=== PATIENT | female | born 1980 | race Caucasian/White ===

== ENCOUNTER → 2016-10-30 23:18 | Outpatient (CLI) | payer MEDICAID ==
[2015-10-19 08:01] VITALS: BMI 28.9
[~2016-10-30 23:18] MED LIST: CELEXA40 MG PO; DILAUDID2 MG PO; ELAVIL25 MG PO; GLUCOPHAGE500 MG PO; HYDROCODONE-APA1 TAB PO; INVOKANA300 MG PO; KURVELO OR; LANTUS INSULIN10 ML SQ; LISINOPRIL10 MG PO; NEURONTIN 300300 MG PO; PROTONIX40 MG PO; REMERON30 MG/UDTA PO; ROBAXIN-750750 MG PO; VICTOZA0.6 MG/0.1 SQ
[2016-10-31 00:48] LABS: APPEARANCE HAZY (CLEAR); BILIRUBIN NEGATIVE (NEGATIVE); COLOR YELLOW (YELLOW); GLUCOSE 1000 mg/dL (NEGATIVE); KETONE NEGATIVE (NEGATIVE); LEUKOCYTE ESTERASE NEGATIVE (NEGATIVE); NITRITE NEGATIVE (NEGATIVE); PH 5.5 (5.0-6.0); PROTEIN NEGATIVE (NEGATIVE); SPECIFIC GRAVITY 1.015 (1.005-1.020); UROBILINOGEN NORMAL (NORMAL)
== END ==
LOC: D.LDO 23:18
PROVIDERS: Obstetrics & Gynecology
DX: O26.893 Other specified pregnancy related conditions, third trimester (principal); Z3A.36 36 weeks gestation of pregnancy; R10.30 Lower abdominal pain, unspecified

== ENCOUNTER 2017-02-08 17:30 | Emergency (ER) | payer MEDICAID ==
[2015-10-19 08:01] VITALS: BMI 28.9
[2017-02-08 18:27] LABS: BASOPHILS 0.4 % (0-2); EOSINOPHILS 0.9 % (0-7); HEMATOCRIT 43.7 % (36.0-48.0); HEMOGLOBIN 13.6 g/dL (12-16); IMMATURE GRANULOCYTES 0.1 % (0-5); LYMPHOCYTES 33.9 % (15-50); MCH 24.2 pg (26.0-34.0); MCHC 31.1 g/dL (31.0-37.0); MCV 77.6 fL (80.0-100.0); MONOCYTES 6.2 % (2-11); NEUTROPHILS 58.5 % (40-80); PLATELET COUNT 121 10x3/uL (130-400); RBC 5.63 10x6/uL (4.00-5.40); RDW 16.5 % (11.5-14.5); WBC 7.1 10x3/uL (4.8-10.8)
[2017-02-08 18:54] LABS: ALBUMIN 3.1 g/dL (3.4-5.0); BILIRUBIN - TOTAL 0.45 mg/dL (0.2-1.3); CALCIUM 8.9 mg/dL (8.5-10.1); CARBON DIOXIDE 26.2 mmol/L (21.0-32.0); POTASSIUM - SERUM 4.2 mmol/L (3.5-5.1); PROTEIN - SERUM 7.2 g/dL (6.4-8.2)
[2017-02-08 21:21] LABS: APPEARANCE CLEAR (CLEAR); BACTERIA FEW /hpf (NONE SEEN); BILIRUBIN NEGATIVE (NEGATIVE); COLOR YELLOW (YELLOW); EPITHELIAL CELLS 0-5 /hpf (0-5); GLUCOSE 1000 mg/dL (NEGATIVE); KETONE NEGATIVE (NEGATIVE); LEUKOCYTE ESTERASE TRACE (NEGATIVE); NITRITE NEGATIVE (NEGATIVE); PROTEIN NEGATIVE (NEGATIVE); RED CELLS - URINE OCC /hpf (0-5); UROBILINOGEN NORMAL (NORMAL); WHITE CELLS - URINE 0-5 /hpf (0-5)
== END 2017-02-09 00:20 | disposition left against medical advice (07) ==
LOC: D.ER 17:30
PROVIDERS: Emergency Medicine
DX: R11.10 Vomiting, unspecified (principal); E11.65 Type 2 diabetes mellitus with hyperglycemia; K76.9 Liver disease, unspecified; I10 Essential (primary) hypertension; E87.6 Hypokalemia

== ENCOUNTER 2017-02-23 23:56 | Emergency (ER) | payer MEDICAID ==
[2015-10-19 08:01] VITALS: BMI 28.9
== END 2017-02-23 23:57 | disposition home or self-care (01) ==
LOC: D.ER 23:56
DX: T83.89XA Other specified complication of genitourinary prosthetic devices, implants and grafts, initial encounter (principal); I10 Essential (primary) hypertension; E87.6 Hypokalemia; F17.200 Nicotine dependence, unspecified, uncomplicated

== ENCOUNTER 2017-03-26 15:56 | Emergency (ER) | payer MEDICAID ==
[2015-10-19 08:01] VITALS: BMI 28.9
[2017-03-26 16:47] LABS: APPEARANCE CLEAR (CLEAR); BASOPHILS 0.5 % (0-2); BILIRUBIN NEGATIVE (NEGATIVE); COLOR STRAW (YELLOW); EOSINOPHILS 1.3 % (0-7); GLUCOSE 1000 mg/dL (NEGATIVE); HEMATOCRIT 42.6 % (36.0-48.0); HEMOGLOBIN 14.2 g/dL (12-16); IMMATURE GRANULOCYTES 0.1 % (0-5); KETONE NEGATIVE (NEGATIVE); LEUKOCYTE ESTERASE NEGATIVE (NEGATIVE); LYMPHOCYTES 26.7 % (15-50); MCH 25.7 pg (26.0-34.0); MCHC 33.3 g/dL (31.0-37.0); MCV 77.2 fL (80.0-100.0); MONOCYTES 7.3 % (2-11); NEUTROPHILS 64.1 % (40-80); NITRITE NEGATIVE (NEGATIVE); PLATELET COUNT 102 10x3/uL (130-400); PROTEIN NEGATIVE (NEGATIVE); RBC 5.52 10x6/uL (4.00-5.40); RDW 14.8 % (11.5-14.5); UROBILINOGEN NORMAL (NORMAL); WBC 7.8 10x3/uL (4.8-10.8)
[2017-03-26 17:03] LABS: ALBUMIN 3.1 g/dL (3.4-5.0); ALKALINE PHOSPHATASE 145 U/L (46-116); ALT (SGPT) 49 U/L (10-68); AMYLASE - SERUM 29 U/L (25-115); BILIRUBIN - TOTAL 0.46 mg/dL (0.2-1.3); CALCIUM 9.2 mg/dL (8.5-10.1); CARBON DIOXIDE 29.7 mmol/L (21.0-32.0); CHLORIDE - SERUM 100 mmol/L (98-107); CREATININE - SERUM 0.9 mg/dL (0.6-1.3); LIPASE 136 U/L (73-393); POTASSIUM - SERUM 4.1 mmol/L (3.5-5.1); PROTEIN - SERUM 6.6 g/dL (6.4-8.2); SODIUM 135 mmol/L (136-145); UREA NITROGEN 13 mg/dL (7-18); eGFR NON AFRICAN AMERICAN 76 mL/min (90-120)
[2017-03-26 17:06] LABS: CALC OSMOLALITY 292 mosm/kg (275-300); GLUCOSE 510 mg/dL (74-106)
[2017-03-26 17:13] LABS: HCG SERUM NEGATIVE (NEGATIVE)
== END 2017-03-26 20:20 | disposition home or self-care (01) ==
LOC: D.ER 15:56
PROVIDERS: Emergency Medicine; Physician Assistant Medical
DX: R10.9 Unspecified abdominal pain (principal); R11.0 Nausea; I10 Essential (primary) hypertension; E87.6 Hypokalemia

== ENCOUNTER 2017-04-27 18:44 | Inpatient (IN) | payer MEDICAID ==
[~2017-04-27] VITALS: Ht 172.7 cm; Wt 102.6 kg
[2017-04-27 19:00] VITALS: BP 146/80
[2017-04-27 19:27] LABS: APPEARANCE CLEAR (CLEAR); BILIRUBIN NEGATIVE (NEGATIVE); COLOR STRAW (YELLOW); GLUCOSE 1000 mg/dL (NEGATIVE); KETONE NEGATIVE (NEGATIVE); LEUKOCYTE ESTERASE NEGATIVE (NEGATIVE); NITRITE NEGATIVE (NEGATIVE); PROTEIN NEGATIVE (NEGATIVE); UROBILINOGEN NORMAL (NORMAL)
[2017-04-27 19:35] LABS: BACTERIA FEW /hpf (NONE SEEN); EPITHELIAL CELLS 0-5 /hpf (0-5); RED CELLS - URINE 0-5 /hpf (0-5); UDS - AMPHET NEGATIVE QUAL (NEGATIVE); UDS - BARB NEGATIVE QUAL (NEGATIVE); UDS - BENZO NEGATIVE QUAL (NEGATIVE); UDS - COCAINE NEGATIVE QUAL (NEGATIVE); UDS - METH NEGATIVE QUAL (NEGATIVE); UDS - OPIATE NEGATIVE QUAL (NEGATIVE); UDS - PCP NEGATIVE QUAL (NEGATIVE); UDS - THC NEGATIVE QUAL (NEGATIVE); WHITE CELLS - URINE 0-5 /hpf (0-5); YEAST >1+ /hpf (NONE SEEN)
[2017-04-27 19:37] LABS: BASOPHILS 0.3 % (0-2); EOSINOPHILS 1.1 % (0-7); HEMATOCRIT 41.3 % (36.0-48.0); HEMOGLOBIN 13.8 g/dL (12-16); IMMATURE GRANULOCYTES 0.2 % (0-5); LYMPHOCYTES 32.8 % (15-50); MCH 25.9 pg (26.0-34.0); MCHC 33.4 g/dL (31.0-37.0); MCV 77.6 fL (80.0-100.0); MEAN PLATELET VOLUME 12.5 fL (7.4-10.4); MONOCYTES 5.5 % (2-11); NEUTROPHILS 60.1 % (40-80); PLATELET COUNT 90 10x3/uL (130-400); RBC 5.32 10x6/uL (4.00-5.40); RDW 13.6 % (11.5-14.5); WBC 6.6 10x3/uL (4.8-10.8)
[2017-04-27 19:45] LABS: APTT 24.6 SECONDS (22.8-39.4); INR 1.02 (0.85-1.17); PROTIME 13.3 SECONDS (11.6-15.0)
[2017-04-27 19:52] LABS: ALKALINE PHOSPHATASE 114 U/L (46-116); ALT (SGPT) 48 U/L (10-68); CALCIUM 8.2 mg/dL (8.5-10.1); CARBON DIOXIDE 24.5 mmol/L (21.0-32.0); CHLORIDE - SERUM 97 mmol/L (98-107); CREATININE - SERUM 0.9 mg/dL (0.6-1.3); HCG SERUM NEGATIVE (NEGATIVE); MAGNESIUM - SERUM 1.5 mg/dL (1.8-2.4); PHOSPHOROUS 2.8 mg/dL (2.5-4.9); PROTEIN - SERUM 6.9 g/dL (6.4-8.2); SODIUM 131 mmol/L (136-145); UREA NITROGEN 12 mg/dL (7-18); eGFR NON AFRICAN AMERICAN 76 mL/min (90-120)
[2017-04-27 19:55] LABS: CALC OSMOLALITY 293 mosm/kg (275-300); GLUCOSE 656 mg/dL (74-106)
[2017-04-27 20:09] LABS: KETONE - SERUM NEGATIVE (NEGATIVE)
[2017-04-27 20:38] LABS: HEMOGLOBIN A1C 11.4 % (4.8-6.0)
--- NOTE | 2017-04-27 21:15 | NUR ---
PT ARRIVED VIA W/C FROM ER. NO DISTRESS NOTED. WILL CONTINUE TO MONITOR.
[2017-04-27 21:45] VITALS: BP 146/80; Ht 172.7 cm; Wt 102.6 kg
[2017-04-27] MEDS ORDERED: METOPROLOL TART50 MG PO (22:02)
[2017-04-27] MEDS ORDERED: HCTZ25 MG PO (22:03)
[2017-04-27] MEDS ORDERED: HUMALOG 30100 UNITS/ SC ×2 (22:06→22:07)
[2017-04-27] MEDS ORDERED: HUMULIN R100 U/ML SC (22:07)
[2017-04-27] MEDS ORDERED: ULTRAM50 MG PO (22:09)
--- NOTE | 2017-04-27 22:28 | NUR ---
ADMISSION ASSESSMENT, HISTORY AND HOME MED LIST COMPLETED. PT DENIES ANY DISCOMFORT. VSS. WILL CONTINUE TO MONITOR. SR UP X2, CALL LIGHT WITHIN REACH.
--- NOTE | 2017-04-27 23:10 | NUR ---
PT HAS C/O PAIN AND NAUSEA. Arnav GARCIA RN HS NOTIFIED.
[2017-04-28] VITALS: BP 145/97
--- NOTE | 2017-04-28 00:23 | NUR ---
PT ASKING FOR PAINA ND NAUSEA MEDS. RECONTACTED Arnav GARCIA RN HS TO GET ORDERS FROM ERMD. PT UPDATED. WILL CONTINUE TO MONITOR.
--- NOTE | 2017-04-28 01:17 | NUR ---
ZOFRAN 4MG SIVP GIVEN FOR C/O NAUSEA. ULTRAM 50MG PO GIVEN FOR C/O R FLANK PAIN. SPOUSE AT BEDSIDE. SR UP X2, CALL LIGHT WITHIN REACH.
--- NOTE | 2017-04-28 01:55 | NUR ---
PT STATES PAIN LEVEL STILL 7/10. DENIES AN NAUSEA. EXPLAINED PAIN MED REGIMEN. WILL CONTINUE TO MONITOR.
--- NOTE | 2017-04-28 02:46 | NUR ---
PT CONTINUES TO HAVE C/O FERRER AND L SIDED PAIN, INFORMED PT THAT ER MD WILL NOT GIVE HER ANYMORE PAIN MEDS DUE TO HER FALLS X2 AT HOME. COOL WASHCLOTH APPLIED TO HEAD. INFORMED PT SHE WILL GET ANOTHER ULTRAM WHEN IT IS DUE. WILL CONTINUE TO MONITOR.
[2017-04-28 04:00] VITALS: BP 143/77
--- NOTE | 2017-04-28 04:38 | NUR ---
PT CONTINUES TO HAVE C/O FERRER AND HURTING ALL OVER. INFORMED WILL BRING ULTRAM AT 0500. WILL CONTINUE TO MONITOR.
--- NOTE | 2017-04-28 04:56 | NUR ---
ULTRAM 50MG PO GIVEN FOR C/O FERRER AND GENERALIZED DISCOMFORT. WILL CONTINUE TO MONITOR.
--- NOTE | 2017-04-28 06:34 | NUR ---
PT CONTINUES TO BERE SHE HAS PAIN 04/01. AM FSBS 250. 8 UNITS HUMALOG GIVEN SUB-Q TO UPPER L ARM. NEEDS MET; WILL CONTINUE TO MONITOR.
[2017-04-28 06:49] LABS: BASOPHILS 0.4 % (0-2); EOSINOPHILS 1.8 % (0-7); HEMATOCRIT 38.9 % (36.0-48.0); HEMOGLOBIN 12.8 g/dL (12-16); IMMATURE GRANULOCYTES 0.2 % (0-5); LYMPHOCYTES 43.6 % (15-50); MCHC 32.9 g/dL (31.0-37.0); MCV 76.1 fL (80.0-100.0); MONOCYTES 7.1 % (2-11); NEUTROPHILS 46.9 % (40-80); PLATELET COUNT 102 10x3/uL (130-400); RBC 5.11 10x6/uL (4.00-5.40); RDW 13.7 % (11.5-14.5); WBC 5.5 10x3/uL (4.8-10.8)
[2017-04-28 06:52] LABS: CALC OSMOLALITY 277 mosm/kg (275-300); CALCIUM 7.6 mg/dL (8.5-10.1); CARBON DIOXIDE 27.6 mmol/L (21.0-32.0); CHLORIDE - SERUM 103 mmol/L (98-107); CREATININE - SERUM 0.6 mg/dL (0.6-1.3); GLUCOSE 282 mg/dL (74-106); POTASSIUM - SERUM 3.6 mmol/L (3.5-5.1); SODIUM 135 mmol/L (136-145); UREA NITROGEN 8 mg/dL (7-18); eGFR NON AFRICAN AMERICAN > 90 mL/min (90-120)
--- NOTE | 2017-04-28 07:15 | NUR ---
INITIAL ROUNDS MADE. PT SITTING UP IN BED WATCHING TV. C/O HEADACHE AND ABD PAIN. SHE IS REQUESTING PAIN SHOT. DR MICHEL ON UNIT ROUNDING.
--- NOTE | 2017-04-28 08:00 | NUR ---
PT TOLERATED CLEAR LIQUIDS, ORDERED A REG ADA TRAY.
[2017-04-28 08:22] VITALS: BP 143/84
--- NOTE | 2017-04-28 10:30 | NUR ---
PT VOMITING FOOD PARTICLES FROM BREAKFAST.
--- NOTE | 2017-04-28 12:00 | NUR ---
FSBS 314, 12 UNITS INSULIN GIVEN PER SS.
[2017-04-28 12:10] VITALS: BP 131/72
--- NOTE | 2017-04-28 12:30 | NUR ---
UP TO SHOWER.
--- NOTE | 2017-04-28 13:00 | NUR ---
PT TOLERATED LUNCH WITHOUT N/V.
--- NOTE | 2017-04-28 14:20 | NUR ---
PT REPORTED "SPITTING UP BLOOD". DIME SIZED RED SPOT NOTED ON TISSUE.
--- NOTE | 2017-04-28 15:20 | NUR ---
PT NOW C/O "SHARP STABBING PAIN IN ABDOMEN". HAS ALREADY BEEN GIVEN ULTRAM REQUESTED.
[2017-04-28 16:15] VITALS: BP 149/76
--- NOTE | 2017-04-28 17:15 | NUR ---
C/O N/V AGAIN, ADVISED IF ALREADY NAUSEATED SHOULD NOT EAT. PT HAS BEEN COMPLAINING OF NAUSEA ALL DAY AND INSISTS ON DRINKING SODAS AND EATING FOOD.
--- NOTE | 2017-04-28 19:43 | NUR ---
INITIAL ROUNDS COMPLETED. PT HAS C/O N/V WITH EATING ASN ABD PAIN AND HURTING ALL OVER. ASKING IF MD WILL CAME BACK IN TONIGHT. INFORMED PT THAT THE MD IS GONE FOR THE NIGHT. WILL CONTINUE TO MONITOR.
[2017-04-28 22:14] VITALS: BP 134/88
--- NOTE | 2017-04-28 22:42 | NUR ---
ASSESSMETN COMPLETD AT 1945 HRS. PT CONTINUES TO HAVE C/O NAUESA AND ABD PAIN BUT EATING JELLO AND CRACKERS AND DRINKING DIET SPRITE. IV TO LFA SL. LUNGS DIMINISHE IN BASES BILAT. ABRASION NOTED TO R FLANK. PM FSBS 277. HUMALOG S/S INSULIN GIVNE PER ORDERS. PM MES GIVNE. PT CURRENTLY WATCHING TV. NO DISTRESS NOTED. SR UP X2, CALL LIGHT WITHIN REACH.
--- NOTE | 2017-04-29 00:15 | NUR ---
NORCO PO GIVEN FOR C/O SHARP ABD PAIN. WILL CONTINUE TO MONITOR.
[2017-04-29 00:45] VITALS: BP 130/87
--- NOTE | 2017-04-29 02:13 | NUR ---
PT AWAKE. NO DISTRESS NOTED. WILL CONTINUE TO MONITOR.
[2017-04-29 04:00] VITALS: BP 123/69
--- NOTE | 2017-04-29 04:54 | NUR ---
PT RESTING WITH EYES CLOSED. RESP EVEN AND REGULAR. SR UP X2, CALL LIGHT WITHIN REACH.
--- NOTE | 2017-04-29 06:36 | NUR ---
VSS THROUGHOUT NGIHT. AM FSBS 182. 4 UNITS HUMALOG GIVEN SUB- Q TO UPPER L ARM PER S/S. PT STATES ABD PAIN LESS THIS AM. NEEDS MET; WILL CONTINUE TO MONITOR.
--- NOTE | 2017-04-29 07:15 | NUR ---
REPORT RECIEVED ASSUMED CARE. PATIENT IN BED WITH IV INTACT. NO COMPLAINTS AT THIS TIME. CALL LIGHT WITHIN REACH.
[2017-04-29 08:00] VITALS: BP 96/67
[2017-04-29 12:00] VITALS: BP 135/65
[2017-04-29] MEDS ORDERED: METOPROLOL TART50 MG PO (12:49)
--- NOTE | 2017-04-29 14:27 | NUR ---
PATIENT RECIEVED DC INSTRUCTIONS. VERBALIZED UNDERSTANDING. NO QUESTIONS AT THIS TIME. IV REMOVED WITH CATH TIP INTACT. CALL LIGHT WITHIN REACH.
--- NOTE | 2017-04-29 15:08 | NUR ---
PATIENT IN BED WITH IV INTACT. NO COMPLAINTS, EYES CLOSED RESTING QUIETLY. CALL LIGHT WITHIN REACH.
--- NOTE | 2017-04-29 17:07 | NUR ---
Patient Name: MOIZ MALONE Admission Status: ER Accout number: [id number] Admission Date: 04-27-2017 : 1980 Admission Diagnosis: Attending: DILEEP Current LOS: 2 Anticipated DC Date: 04-29-2017 Planned Disposition: Home Primary Insurance: [place] PRIVATE OPTIONS TRE LATE ENTRY: Discharge Planning Comments: * Is the patient Alert and Oriented? Yes 0 * How many steps to enter\exit or inside your home? 14 0 * PCP DR. SERVANDO RODRÍGUEZ 0 * Pharmacy [facility] [address] 0 * Preadmission Environment Home with Family 0 * ADLs Independent 0 * Equipment Glucometer 0 * Other Equipment NO MEDICAL EQUIPMENT PROVIDER PREFERENCE 0 * List name and contact numbers for known caregivers / representatives who currently or will assist patient after discharge: LIANET MALONE, SPOUSE, 0 * Community resources currently utilized None 0 * Please name any agencies selected above. NONE 0 * Additional services required to return to the preadmission environment? No 0 * Can the patient safely return to the preadmission environment? Yes 0 * Has this patient been hospitalized within the prior 30 days at any hospital? No 0 CM MET WITH PT IN ROOM TO DISCUSS DISCHARGE PLANNING AND NEEDS. PT REPORTS LIVING AT HOME INDEPENDENTLY WITH HER SPOUSE. PT HAS GLUCOMETER AND NO MEDICAL EQUIPMENT PROVIDER PREFERENCE. PT HAS NO OUTSIDE SERVICES ASSISTING IN THE HOME. CM DISCUSSED AVAILABILITY OF HOME HEALTH, REHAB SERVICES AND MEDICAL EQUIPMENT. PT DENIES DISCHARGE NEEDS, REPORTS HER SPOUSE WILL PICK HER UP FOR DISCHARGE HOME. PT REPORTS HAVING HER ALPINE PATROLLER CONTACT INFORMATION IF SHE HAS QUESTIONS OR NEEDS. Paraprofessional Education Assistant: Chris Baptiste
== END 2017-04-29 16:18 | disposition home or self-care (01) | DRG 638 ==
LOC: D.ER 18:44 → D.M2 20:35
PROVIDERS: Emergency Medicine; ADMIT Family Medicine
DX: E10.65 Type 1 diabetes mellitus with hyperglycemia (principal); E87.1 Hypo-osmolality and hyponatremia; Z79.4 Long term (current) use of insulin; E86.0 Dehydration; I10 Essential (primary) hypertension; R53.1 Weakness; R55 Syncope and collapse; W18.39XA Other fall on same level, initial encounter; S20.211A Contusion of right front wall of thorax, initial encounter; M54.16 Radiculopathy, lumbar region; D69.6 Thrombocytopenia, unspecified; Z72.0 Tobacco use

== ENCOUNTER 2018-07-02 22:00 | Emergency (ER) | payer MEDICAID ==
[~2018-07-02] VITALS: Ht 172.7 cm; Wt 104.3 kg
[~2018-07-02 22:00] MED LIST changes: +HCTZ25 MG PO; +HUMALOG 30100 UNITS/ SC; +HUMULIN R100 U/ML SC; +METOPROLOL TART50 MG PO; +ULTRAM50 MG PO
[2018-07-02 22:05] VITALS: Ht 172.7 cm; Wt 104.3 kg
[2018-07-02 22:32] LABS: APPEARANCE CLEAR (CLEAR); COLOR YELLOW (YELLOW); GLUCOSE 250 mg/dL (NEGATIVE); KETONE NEGATIVE (NEGATIVE); NITRITE NEGATIVE (NEGATIVE); PROTEIN NEGATIVE (NEGATIVE); UROBILINOGEN NORMAL (NORMAL)
[2018-07-02 22:33] LABS: BILIRUBIN NEGATIVE (NEGATIVE)
[2018-07-03 00:52] VITALS: BP 179/92
== END 2018-07-03 00:52 | disposition home or self-care (01) ==
LOC: D.ER 22:00
PROVIDERS: Family Medicine
DX: M54.5 Low back pain (principal); M79.605 Pain in left leg; E11.9 Type 2 diabetes mellitus without complications; I10 Essential (primary) hypertension; F17.200 Nicotine dependence, unspecified, uncomplicated

== ENCOUNTER 2019-01-20 18:55 | Emergency (ER) | payer BC ==
[~2019-01-20] VITALS: Ht 172.7 cm; Wt 104.5 kg
[2019-01-20 19:13] VITALS: Ht 172.7 cm; Wt 104.5 kg
[2019-01-20 19:40] LABS: APPEARANCE CLEAR (CLEAR); BILIRUBIN NEGATIVE (NEGATIVE); COLOR YELLOW (YELLOW); GLUCOSE 500 mg/dL (NEGATIVE); HCG URINE NEGATIVE (NEGATIVE); KETONE NEGATIVE (NEGATIVE); NITRITE NEGATIVE (NEGATIVE); PROTEIN NEGATIVE (NEGATIVE); UROBILINOGEN NORMAL (NORMAL)
[2019-01-20 19:59] LABS: BASOPHILS 0.5 % (0-2); EOSINOPHILS 1.9 % (0-7); HEMOGLOBIN 13.6 g/dL (12-16); IMMATURE GRANULOCYTES 0.3 % (0-5); LYMPHOCYTES 34.8 % (15-50); MCH 26.9 pg (26.0-34.0); MCV 79.1 fL (80.0-100.0); MEAN PLATELET VOLUME 12.5 fL (7.4-10.4); MONOCYTES 7.4 % (2-11); NEUTROPHILS 55.1 % (40-80); PLATELET COUNT 106 10x3/uL (130-400); RBC 5.06 10x6/uL (4.00-5.40); RDW 13.6 % (11.5-14.5); WBC 7.4 10x3/uL (4.8-10.8)
[2019-01-20 20:16] LABS: ALBUMIN 3.1 g/dL (3.4-5.0); ALKALINE PHOSPHATASE 89 U/L (46-116); ALT (SGPT) 27 U/L (10-68); AMYLASE - SERUM 33 U/L (25-115); BILIRUBIN - TOTAL 0.37 mg/dL (0.2-1.3); CALCIUM 8.8 mg/dL (8.5-10.1); CARBON DIOXIDE 25.4 mmol/L (21.0-32.0); CHLORIDE - SERUM 100 mmol/L (98-107); CREATININE - SERUM 0.8 mg/dL (0.6-1.3); LIPASE 152 U/L (73-393); POTASSIUM - SERUM 3.9 mmol/L (3.5-5.1); PROTEIN - SERUM 6.5 g/dL (6.4-8.2); SODIUM 135 mmol/L (136-145); TROPONIN-I < 0.017 ng/mL (0.000-0.060); UREA NITROGEN 13 mg/dL (7-18); eGFR NON AFRICAN AMERICAN 86 mL/min (90-120)
[2019-01-20 20:37] LABS: CALC OSMOLALITY 295 mosm/kg (275-300)
[2019-01-20 20:38] LABS: GLUCOSE 571 mg/dL (74-106)
[2019-01-20] MEDS ORDERED: ZOFRAN ODT4 MG/UDTAB PO (23:06)
[2019-01-20] MEDS ORDERED: LEVSIN/ANASP0.125 MG PO (23:06)
[2019-01-20 23:53] VITALS: BP 150/83
== END 2019-01-20 23:53 | disposition home or self-care (01) ==
LOC: D.ER 18:55
PROVIDERS: Family Medicine
DX: E11.65 Type 2 diabetes mellitus with hyperglycemia (principal); Z79.4 Long term (current) use of insulin

== ENCOUNTER 2019-03-04 11:30 | Outpatient (CLI) | payer MEDICAID ==
[2019-01-20 19:13] VITALS: BMI 35.0
[~2019-03-04 11:30] MED LIST changes: +LEVSIN/ANASP0.125 MG PO; +ZOFRAN ODT4 MG/UDTAB PO
== END 2019-03-04 12:00 | disposition home or self-care (01) ==
LOC: D.MAMMO 11:30
PROVIDERS: ATTEND Family Medicine
DX: N63.11 Unspecified lump in the right breast, upper outer quadrant (principal)

== ENCOUNTER 2019-03-18 17:41 | Emergency (ER) | payer MEDICAID ==
[~2019-03-18] VITALS: Ht 172.7 cm; Wt 105.5 kg
[2019-03-18 17:47] VITALS: Ht 172.7 cm; Wt 105.5 kg
[2019-03-18] MEDS ORDERED: COZAAR50 MG PO (17:54)
[2019-03-18] MEDS ORDERED: VOLTAREN75 MG PO (18:30)
[2019-03-18] MEDS ORDERED: CLEOCIN HCL300 MG PO (18:30)
[2019-03-18 18:50] VITALS: BP 148/88
== END 2019-03-18 18:50 | disposition home or self-care (01) ==
LOC: D.ER 17:41
DX: K02.9 Dental caries, unspecified (principal)

== ENCOUNTER 2019-03-24 06:02 | Emergency (ER) | payer MEDICAID ==
[~2019-03-24] VITALS: Ht 172.7 cm; Wt 104.5 kg
[~2019-03-24 06:02] MED LIST changes: +CLEOCIN HCL300 MG PO; +COZAAR50 MG PO; +VOLTAREN75 MG PO
[2019-03-24 06:12] VITALS: Ht 172.7 cm; Wt 104.5 kg
[2019-03-24 06:50] VITALS: BP 168/98
== END 2019-03-24 06:50 | disposition home or self-care (01) ==
LOC: D.ER 06:02
DX: K08.89 Other specified disorders of teeth and supporting structures (principal); K02.9 Dental caries, unspecified

== ENCOUNTER 2019-05-03 11:31 | Observation (INO) | payer MEDICAID ==
[~2019-05-03] VITALS: Ht 172.7 cm; Wt 102.5 kg
[2019-05-03] MEDS ORDERED: NOVOLOG100 UNIT/1 SC (11:37)
[2019-05-03 12:17] LABS: BASOPHILS 0.4 % (0-2); HEMATOCRIT 37.7 % (36.0-48.0); HEMOGLOBIN 13.1 g/dL (12-16); IMMATURE GRANULOCYTES 0.2 % (0-5); LYMPHOCYTES 20.1 % (15-50); MCH 26.8 pg (26.0-34.0); MCHC 34.7 g/dL (31.0-37.0); MCV 77.1 fL (80.0-100.0); MEAN PLATELET VOLUME 12.2 fL (7.4-10.4); MONOCYTES 6.2 % (2-11); NEUTROPHILS 72.1 % (40-80); PLATELET COUNT 88 10x3/uL (130-400); RBC 4.89 10x6/uL (4.00-5.40); RDW 13.1 % (11.5-14.5)
[2019-05-03 12:20] LABS: KETONE - SERUM NEGATIVE (NEGATIVE)
[2019-05-03 12:21] LABS: ALKALINE PHOSPHATASE 83 U/L (46-116); ALT (SGPT) 16 U/L (10-68); BILIRUBIN - TOTAL 0.54 mg/dL (0.2-1.3); CALC OSMOLALITY 281 mosm/kg (275-300); CALCIUM 8.7 mg/dL (8.5-10.1); CARBON DIOXIDE 23.2 mmol/L (21.0-32.0); CHLORIDE - SERUM 99 mmol/L (98-107); CREATININE - SERUM 0.9 mg/dL (0.6-1.3); SODIUM 130 mmol/L (136-145); UREA NITROGEN 13 mg/dL (7-18); eGFR NON AFRICAN AMERICAN 75 mL/min (90-120)
[2019-05-03 12:21] LABS: APPEARANCE CLEAR (CLEAR); BILIRUBIN NEGATIVE (NEGATIVE); COLOR STRAW (YELLOW); GLUCOSE 1000 mg/dL (NEGATIVE); KETONE NEGATIVE (NEGATIVE); NITRITE NEGATIVE (NEGATIVE); PROTEIN NEGATIVE (NEGATIVE); SPECIFIC GRAVITY 1.005 (1.005-1.020); UROBILINOGEN NORMAL (NORMAL)
[2019-05-03 12:22] LABS: GLUCOSE 475 mg/dL (74-106)
[2019-05-03 12:40] LABS: PLATELET ESTIMATE DECREASED
[2019-05-03 13:55] VITALS: BP 168/104
--- NOTE | 2019-05-03 14:21 | NUR ---
FSBS 156
[2019-05-03 15:34] VITALS: BP 155/93
--- NOTE | 2019-05-03 15:55 | NUR ---
PT RECIEVED FROM ER VIA WHEEL CHAIR. VSS. NO C/O PAIN AT THIS TIME. ASSESSMENT COMPLETE. PT HAS ABSESS TO R BUTTOCKS. ASSISTED PT TO SIDE LAYING POSITION. NO SIGNS OF DISTRESS. CL IN REACH, BED IN LOWEST POSITION.
[2019-05-03 15:56] VITALS: BP 155/85; BMI 34.4
--- NOTE | 2019-05-03 17:00 | NUR ---
FSBS 163, 2 UNITS OF INSULIN GIVEN. NO SIGNS OF DISTRESS, PT IS LAYING IN BED WITH NO C/O PAIN. CONT WITH POC.
[2019-05-03] MEDS ORDERED: COZAAR100 MG PO (17:40)
[2019-05-03] MEDS ORDERED: BASAGLAR K100 UNIT/1 SC (17:40)
--- NOTE | 2019-05-03 19:20 | NUR ---
PATIENT RESTING IN BED WITH NO S/S OF DISTRESS. VSS. BROUGHT PATIENT A DRINK AND ICE PER HER REQUEST. PATIENT DENIES OTHER NEEDS AT THIS TIME. ENCOURAGED THE PATIENT TO CALL IF SHE HAS NEEDS. WILL CONTINUE TO MONITOR.
[2019-05-03 19:29] VITALS: BP 126/58
[2019-05-04] VITALS: BP 146/76
[2019-05-04 04:16] VITALS: BP 155/86
--- NOTE | 2019-05-04 07:21 | NUR ---
PT RESTING SUPINE IN BED UPON ENTERING, EYES CLOSED. BREATHING EVEN AND UNLABORED, NO S/S OF DISTRESS NOTED. PT EASILY AROUSED BY SPEAKING. ALERT AND ORIENTED X4. PT HAS IV TO RIGHT HAND, SALINE LOCKED AND IS ON ROOM AIR. DENIES ANY NEEDS AT THIS TIME. WILL CTM.
[2019-05-04 07:41] VITALS: BP 129/67
--- NOTE | 2019-05-04 08:42 | NUR ---
ADMINISTERED PRN DILAUDID FOR PAIN LEVEL OF 8/10 IN BUTTOCKS. PT RESTING COMFORTABLY, DENIES OTHER NEEDS. WILL REASSESS.
--- NOTE | 2019-05-04 09:22 | NUR ---
HUNG IV MEDICATION AT THIS TIME, NO COMPLAINTS OF PAIN/BURNING. REASSESSED PAIN AT THIS TIME, PT REPORTS PAIN IS NOW A 4/10. DENIES OTHER NEEDS AT THIS TIME. WILL CTM.
--- NOTE | 2019-05-04 10:25 | NUR ---
ADMINISTERED PRE-OP MEDICATION, TOLERATED WELL. DENIES ANY NEEDS AT THIS TIME.
[2019-05-04 10:51] VITALS: Ht 172.7 cm; Wt 102.5 kg
--- NOTE | 2019-05-04 11:56 | NUR ---
PT RESTING COMFORTABLY IN BED, AMBULATED TO THE BATHROOM AND BACK. STATES THAT SHE FEELS LIKE HER "IV IS GOING TO FALL OUT". NURSE REMOVED OLD PEELING TAPE WITH NEW TAPE, REINFORCED. IV IS IN PLACE AND FUNCTIONING PROPERLY.
[2019-05-04 12:00] VITALS: BP 119/72
--- NOTE | 2019-05-04 12:40 | NUR ---
PT TO SURGERY.
--- NOTE | 2019-05-04 13:43 | NUR ---
PILLOW BETWEEN ARMS
--- NOTE | 2019-05-04 14:01 | NUR ---
CARE TRANSFERRED TO TRINA MERCHANT RN
--- NOTE | 2019-05-04 14:03 | NUR ---
CARE ASSUMED FROM EDGAR TAMEZ RN
--- NOTE | 2019-05-04 14:19 | NUR ---
I have reviewed this patient and I concur with the Shift Assessment completed by the Licensed Practical Nurse today this shift.
[2019-05-04 14:55] VITALS: BP 156/102
--- NOTE | 2019-05-04 16:21 | NUR ---
PT RESTING IN BED ON THE PHONE. DENIES OTHER NEEDS AT THIS TIME. WILL CTM.
--- NOTE | 2019-05-04 18:18 | NUR ---
PT RESTING COMFORTABLY IN BED, DENIES ANY NEEDS. WILL CTM.
--- NOTE | 2019-05-04 19:02 | NUR ---
PASSED REPORT TO WEBSITE DESIGNER.
--- NOTE | 2019-05-04 19:17 | NUR ---
PATIENT UP TO RESTROOM. OUTER GAUZE SOILED AND FELL OFF. REPLACED OUTER GAUZE AND ABD PAD. PATIENT ALSO REQUESTED PAIN MEDS AT THIS TIME. PATIENT DENIES OTHER NEEDS AT THIS TIME. BED IN LOWEST POSITION AND CALL LIGHT WITHIN REACH. ENCOURAGED THE PATIENT TO CALL IF SHE HAS NEEDS, WILL CONTINUE TO MONITOR.
[2019-05-04 20:33] VITALS: BP 144/81
[2019-05-05 00:39] VITALS: BP 127/79
[2019-05-05 04:44] VITALS: BP 131/68
--- NOTE | 2019-05-05 07:31 | NUR ---
PT RESTING LATERAL IN BED WITH EYES CLOSED, BREATHING EVEN AND UNLABORED. NO S/S OF DISTRESS NOTED. PT HAS IV TO RIGHT HAND, NORMAL SALINE RUNNING AT KVO. PT HAD I&D OF BUTTOCK YESTERDAY, TAKING NORCO PRN. WILL CTM.
--- NOTE | 2019-05-05 08:10 | OP ---
PATIENT NAME: MOIZ MALONE MEDICAL RECORD: [id number] :[birth year] LOCATION:D.M3 D.1206 ADMISSION DATE:05/03/19 SURGEON: RUDDY JOEL MD DATE OF OPERATION: 05/04/2019 PREOPERATIVE DIAGNOSES: 1. Right buttock abscess. 2. Diabetes mellitus. POSTOPERATIVE DIAGNOSES: 1. Right buttock abscess. 2. Diabetes mellitus. PROCEDURE: I&D of the right buttock abscess. SURGEON: Ruddy Joel MD REPORT OF PROCEDURE: The patient was placed in the left lateral decubitus position. The patient's buttock was prepped and draped in sterile fashion. A transverse incision was made through the area of fluctuance and purulence was immediately encountered. Cultures were taken times 2. We then irrigated out the wound with peroxide and saline solution until we had a clear return of fluid. I probed the area and did not see any evidence of any fistulous tracking. The wound was then packed with peroxide soaked Kerlix and dressed appropriately. COMPLICATIONS: None. CONDITION: Stable. ANESTHESIA: General endotracheal. BLOOD LOSS: Minimal. TRANSINT:[id number] Voice Confirmation ID: [id number] DOCUMENT ID: [id number] RUDDY JOEL MD at 0810 CC: [id number] DICTATION DATE: 05/04/19 1335 SYSTEMS TEST ANALYST: 05/04/19 1344 ADM IN [facility] [id number] [place] [address]
[2019-05-05 08:18] VITALS: BP 148/90
--- NOTE | 2019-05-05 09:30 | NUR ---
ADMINISTERED MEDICATION, NO TROUBLE SWALLOWING. PT DENIED NICOTINE PATCH. DENIES OTHER NEEDS. REQUEST DRESSING ME LEFT OFF TO ALLOW HER TO GO TO THE BATHROOM. REPORTS NO BM IN 6 DAYS. WILL NOTIFY PHYSICIAN. WILL CTM.
--- NOTE | 2019-05-05 11:15 | NUR ---
ADMINISTERED PRN PAIN MEDICATION FOR A PAIN LEVEL OF 8/10 IN BUTTOCK AREA. PT PLACED IN TEMPORARY ISOLATION FOR POSSIBLE MRSA. DENIES ANY NEEDS. WILL REASSESS.
[2019-05-05 11:54] LABS: CALC OSMOLALITY 287 mosm/kg (275-300); CALCIUM 9.2 mg/dL (8.5-10.1); CARBON DIOXIDE 24.7 mmol/L (21.0-32.0); CHLORIDE - SERUM 105 mmol/L (98-107); CREATININE - SERUM 0.6 mg/dL (0.6-1.3); GLUCOSE 317 mg/dL (74-106); SODIUM 138 mmol/L (136-145); UREA NITROGEN 12 mg/dL (7-18); eGFR NON AFRICAN AMERICAN > 90 mL/min (90-120)
[2019-05-05 12:00] VITALS: BP 168/100
[2019-05-05 12:43] LABS: BASOPHILS 0.3 % (0-2); EOSINOPHILS 1.3 % (0-7); HEMATOCRIT 37.1 % (36.0-48.0); HEMOGLOBIN 13.1 g/dL (12-16); IMMATURE GRANULOCYTES 0.3 % (0-5); LYMPHOCYTES 24.5 % (15-50); MCH 26.8 pg (26.0-34.0); MCHC 35.3 g/dL (31.0-37.0); MONOCYTES 6.3 % (2-11); NEUTROPHILS 67.3 % (40-80); PLATELET COUNT 98 10x3/uL (130-400); RBC 4.88 10x6/uL (4.00-5.40); WBC 7.4 10x3/uL (4.8-10.8)
--- NOTE | 2019-05-05 12:44 | NUR ---
ADMINISTERED INSULIN PER SLIDING SCALE. DR. JOEL IN THE ROOM. EXPLAINED TO PT WHAT MRSA IS, TOLD PT NOT TO STRESS ABOUT IT. NURSE INFORMED DR. JOEL THAT PT HAS NOT HAD A BOWEL MOVEMENT IN 6 DAYS AND THAT HER PAIN LEVEL IS NOT BEING WELL CONTROLLED WITH NORCO. STATES PT WILL STAY ANOTHER NIGHT. DENIES OTHER NEEDS. WILL CTM.
--- NOTE | 2019-05-05 15:00 | MORECARE ---
CASE MANAGEMENT DISCHARGE SUMMARY PATIENT: MOIZ MALONE UNIT: [id number] ADM DATE: 05/03/19 AGE: 38 : [birth year] SEX: F ROOM/BED: D.1206 AUTHOR: DELILAH AUSTIN PHYSICIAN: REFERRING PHYSICIAN: ELIJAH HOLLINGSWORTH MD DATE OF SERVICE: 05/05/19 Discharge Plan Patient Name: MOIZ MALONE Facility: [facility]:[place] : 1980 Planned Disposition: Home Anticipated Discharge Date: Discharge Date: Expected LOS: Initial Reviewer: [email or web address] Initial Review Date: 05/03/2019 Generated: 05/05/19 4:00 pm DCPIA - Discharge Planning Initial Assessment Updated by [email or web address]: Lexie Last on 05/05/19 2:54 pm * Is the patient Alert and Oriented? Yes * Preadmission Environment Home with Family * ADLs Independent * List name and contact numbers for known caregivers / representatives who currently or will assist patient after discharge: LIANET HARRINGTON [facility] - [phone] * Verbal permission to speak to the caregivers and representatives has been obtained from the patient. Yes * Additional services required to return to the preadmission environment? No * Can the patient safely return to the preadmission environment? Yes * Has this patient been hospitalized within the prior 30 days at any hospital? No Patient Name: MOIZ MALONE Page [id number] at 1500 All edits/amendments must be made on the electronic document DICTATION DATE: 05/05/19 1500 CHARTER PILOT: LAKISHA 05/05/19 1500 RPT#: [id number] DC DATE: STATUS: ADM IN [facility] [address] [place] [address] END OF REPORT
[2019-05-05 15:06] VITALS: BP 152/78
--- NOTE | 2019-05-05 15:10 | MORECARE ---
CASE MANAGEMENT DISCHARGE SUMMARY PATIENT: MOIZ MALONE UNIT: [id number] ADM DATE: 05/03/19 AGE: 38 : 84 SEX: F ROOM/BED: D.1206 AUTHOR: GEOVANNA,DOC PHYSICIAN: REFERRING PHYSICIAN: ELIJAH HOLLINGSWORTH MD DATE OF SERVICE: 05/05/19 Discharge Plan Patient Name: MOIZ MALONE Facility: [facility]:[place] : 1980 Planned Disposition: Home Anticipated Discharge Date: Discharge Date: Expected LOS: Initial Reviewer: [email or web address] Initial Review Date: 05/03/2019 Generated: 05/05/19 4:10 pm Comments DCP- Discharge Planning Updated by [email or web address]: Lexie Last on 05/05/19 2:[address] Patient Name: MOIZ MALONE Admission Status: ER Accout number: [id number] Admission Date: 05-03-2019 : 1980 Admission Diagnosis: Attending: ELIJAH HOLLINGSWORTH Current LOS: 2 Anticipated DC Date: Planned Disposition: Home Primary Insurance: [place] PRIVATE OPTIONS TRE Discharge Planning Comments: CM met with patient at bedside after explaining CM role and obtaining verbal consent. Patient lives at home with her and 2 yr old daughter and plans to return there upon discharge. Patient is concerned that she may have MRSA and worried about being around her 2 yr old. CM discussed availability / needs of home health and medical equipment. Patient states that she will need Home Health for dressing changes upon discharge. Patient states she will have family drive her home upon discharge. NELY signed for . CM will continue to follow and assist as needed with discharge planning / needs. Supervisor Hard Candy: Lexie Last DCPIA - Discharge Planning Initial Assessment Updated by [email or web address]: Lexie Last on 05/05/19 2:54 pm * Is the patient Alert and Oriented? Yes * Preadmission Environment Home with Family * ADLs Independent * List name and contact numbers for known caregivers / representatives who currently or will assist patient after discharge: LIANET HARRINGTON - - [phone] * Verbal permission to speak to the caregivers and representatives has been obtained from the patient. Yes * Additional services required to return to the preadmission environment? No * Can the patient safely return to the preadmission environment? Yes * Has this patient been hospitalized within the prior 30 days at any hospital? No Last DP export: 05/05/19 2:00 p Patient Name: MOIZ MALONE Page [id number] at 1510 All edits/amendments must be made on the electronic document DICTATION DATE: 05/05/19 150 PRESS READER: LAKISHA 05/05/19 1509 RPT#: [id number] DC DATE: STATUS: ADM IN [facility] [address] [place] [address] END OF REPORT
--- NOTE | 2019-05-05 17:13 | NUR ---
PT RESTING IN BED. REPLACED DRESSING. PROVIDED PT WITH NEW MESH PANTIES AND DINNER TRAY. ADMINISTERED 16 UNITS HUMULIN PER SLIDING SCALE. DENIES OTHER NEEDS. WILL CTM.
--- NOTE | 2019-05-05 20:17 | NUR ---
ASSISTED PT TO RESTROOM PER REQUEST. UPON RETURN TO BED PT STATED THAT SHE DID NOT WANT LUIS THE DAY SHIFT NURSE TO TAKE CARE OF HER ANYMORE. SHE SAID THAT SHE WAS RUDE, DISHONEST, AND TALKED ABOUT HER WHEN SHE WAS OUTSIDE HER DOOR.
[2019-05-05 21:00] VITALS: BP 182/94
--- NOTE | 2019-05-06 06:50 | NUR ---
REPORT RECEIVED. ALERT RESP EVEN WITHOUT LABOR. RIGHT HAND SALINE LOCK INTACT. REMAINS IN CONTACT ISOLATION. DENIES ANY CURRENT NEEDS. BED LOCKED AND IN LOWEST POSITION. CAREPLAN REVIEW DONE WITH SAFETY PRECAUTIONS IN PLACE. CL IN REACH
[2019-05-06 08:11] VITALS: BP 125/73
[2019-05-06] MEDS ORDERED: CLEOCIN HCL300 MG PO (11:13)
--- NOTE | 2019-05-06 11:48 | NUR ---
LEO FROM INFECTION CONTROL TO CALL AND TELL US THAT PATIENT CAN COME OUT OF ISOLATION.
[2019-05-06 12:21] VITALS: BP 157/96
[2019-05-06] MEDS ORDERED: SULFAMETHOXAZOL1 TA2 PO (13:10)
--- NOTE | 2019-05-06 13:20 | NUR ---
DRESSING TO POSERTIOR RIGHT BUTTOCK DONE ORDERED. TOLERATED WELL. SLIGHT DRAINAGE SEEN OF SERIOSANGIOOUS DRAINAGE.
--- NOTE | 2019-05-06 14:20 | NUR ---
SPOKE WITH DR JOEL WHO AGREES IT IS OK TO DISCHARGE HER HOME. FOLLOW-UP WITH HIM IN 2 WEEKS AND CONTINUE DAILY DRESSING CHANGES TO RIGHT BUTTOCK PACK DAILY WITH NaCl DAMP GUAZE AND COVER.
[2019-05-06 15:46] VITALS: BP 153/79
--- NOTE | 2019-05-06 16:34 | MORECARE ---
CASE MANAGEMENT DISCHARGE SUMMARY PATIENT: MOIZ MALONE UNIT: [id number] ADM DATE: 05/03/19 AGE: 38 : 84 SEX: F ROOM/BED: D.1206 AUTHOR: GEOVANNA,DOC PHYSICIAN: REFERRING PHYSICIAN: ELIJAH HOLLINGSWORTH MD DATE OF SERVICE: 05/06/19 Discharge Plan Patient Name: MOIZ MALONE Facility: [facility]:[place] : 1980 Planned Disposition: Home Anticipated Discharge Date: Discharge Date: Expected LOS: Initial Reviewer: [email or web address] Initial Review Date: 05/03/2019 Generated: 05/06/19 5:33 pm DCP- Discharge Planning Updated by [email or web address]: Lexie Last on 05/05/19 2:[address] Patient Name: MOIZ MALONE Admission Status: ER Accout number: [id number] Admission Date: 05-03-2019 : 1980 Admission Diagnosis: Attending: ELIJAH HOLLINGSWORTH Current LOS: 2 Anticipated DC Date: Planned Disposition: Home Primary Insurance: [place] PRIVATE OPTIONS TRE Discharge Planning Comments: CM met with patient at bedside after explaining CM role and obtaining verbal consent. Patient lives at home with her and 2 yr old daughter and plans to return there upon discharge. Patient is concerned that she may have MRSA and worried about being around her 2 yr old. CM discussed availability / needs of home health and medical equipment. Patient states that she will need Home Health for dressing changes upon discharge. Patient states she will have family drive her home upon discharge. NELY signed for . CM will continue to follow and assist as needed with discharge planning / needs. Film Cutter: Lexie Last DCPIA - Discharge Planning Initial Assessment Updated by [email or web address]: Lexie Last on 05/05/19 2:54 pm * Is the patient Alert and Oriented? Yes * Preadmission Environment Home with Family * ADLs Independent * List name and contact numbers for known caregivers / representatives who currently or will assist patient after discharge: LIANET HARRINGTON - - [phone] * Verbal permission to speak to the caregivers and representatives has been obtained from the patient. Yes * Additional services required to return to the preadmission environment? No * Can the patient safely return to the preadmission environment? Yes * Has this patient been hospitalized within the prior 30 days at any hospital? No External Providers External Provider: [facility] Next Contact Date: Service Request Date: Service Type: Resolution: Reviewer: Comments: Last DP export: 05/05/19 2:10 p Patient Name: MOIZ MALONE Page 78026 at 1634 All edits/amendments must be made on the electronic document DICTATION DATE: 05/06/19 1633 BANQUET SUPERVISOR: LAKISHA 05/06/19 1633 RPT#: [id number] DC DATE: STATUS: ADM IN [facility] [address] [place] [address] END OF REPORT
--- NOTE | 2019-05-06 16:39 | NUR ---
DISCHARGE INSTRUCTIONS EXPLAINED TO HER IN DETAIL. SHE IS AWARE OF NEW MED AND WOUND CARE, AWARE OF [facility]. SHE IS AWARE OF FOLLOW-UP APPOINTMENTS AND HOUSECALLS WILL BE CALLING HER. SHE WILL CALL WHEN HER RIDE IS HERE. SHE DECLINES TO TAKE INSULIN STATES I WILL TAKE IT WHEN I GET HOME TODAY.
--- NOTE | 2019-05-06 17:09 | NUR ---
HER RIDE HOME IS HERE AT THIS TIME. SALINE LOCK D/C WITH CATH TIP INTACT AND NO BLEEDING NOTED. VSS SHE VOICED NO C/O PAIN OR ISSUES. DRESSING IS D/I TO RIGHT BUTTOCK. TOOK BY W/C TO PRIVATE AUTO AT FRONT
--- NOTE | 2019-05-06 20:00 | MORECARE ---
CASE MANAGEMENT DISCHARGE SUMMARY PATIENT: MOIZ MALONE UNIT: [id number] ADM DATE: 05/03/19 AGE: 38 : [birth year] SEX: F ROOM/BED: D.1206 AUTHOR: GEOVANNA,DOC PHYSICIAN: REFERRING PHYSICIAN: ELIJAH HOLLINGSWORTH MD DATE OF SERVICE: 05/06/19 Discharge Plan Patient Name: MOIZ MALONE Facility: [facility]:[place] : 1980 Planned Disposition: Home Anticipated Discharge Date: Discharge Date: 05/06/2019 Expected LOS: Initial Reviewer: [email or web address] Initial Review Date: 05/03/2019 Generated: 05/06/19 9:00 pm Comments DCP- Discharge Planning Updated by [email or web address]: Lexie Last on 05/06/19 6:[address] CM contacted multiple agencies trying to find a company that could accept a daily dressing change. [facility] stated they could see patient tomorrow but patient will need to have a trainable caregiver. CM spoke with patient she stated that her is gone a lot and didn't know if could do it daily. She then stated that she had a friend that she could check with to do dressing changes but she would have to check with her after she gets off work. CM awaiting to let [facility] know if patient has a caregiver. Patient got back with CM after 3:30 that the friend has agreed to assist with dressing changes when home health not available to change. CM contacted [facility] and faxed records. CM will continue to follow and assist as needed with discharge planning / needs. DCP- Discharge Planning Updated by [email or web address]: Lexie Last on 05/05/19 2:[address] Patient Name: MOIZ MALONE Admission Status: ER Accout number: [id number] Admission Date: 05-03-2019 : 1980 Admission Diagnosis: Attending: ELIJAH HOLLINGSWORTH Current LOS: 2 Anticipated DC Date: Planned Disposition: Home Primary Insurance: [place] [employer]IVATE OPTIONS TRE Discharge Planning Comments: CM met with patient at bedside after explaining CM role and obtaining verbal consent. Patient lives at home with her and 2 yr old daughter and plans to return there upon discharge. Patient is concerned that she may have MRSA and worried about being around her 2 yr old. CM discussed availability / needs of home health and medical equipment. Patient states that she will need Home Health for dressing changes upon discharge. Patient states she will have family drive her home upon discharge. NELY signed for . CM will continue to follow and assist as needed with discharge planning / needs. Vending Service Technician: Lexie Last DCPIA - Discharge Planning Initial Assessment Updated by [email or web address]: Lexie Last on 05/05/19 2:54 pm * Is the patient Alert and Oriented? Yes * Preadmission Environment Home with Family * ADLs Independent * List name and contact numbers for known caregivers / representatives who currently or will assist patient after discharge: LIANET HARRINGTON - [facility] - [phone] * Verbal permission to speak to the caregivers and representatives has been obtained from the patient. Yes * Additional services required to return to the preadmission environment? No * Can the patient safely return to the preadmission environment? Yes * Has this patient been hospitalized within the prior 30 days at any hospital? No Coverage Notice Reviewer: [id number] - Lexie Last Notice Issued Date-Time: 05/06/2019 11:30 Notice Type: Patient Choice Letter Notice Delivered To: Patient Relationship to Patient: Self Artificial Log Machine Operator Name: Delivery Method: HAND - Hand Delivered Marcia Days: Prior Verbal Notification: Recipient Understood Notice: Yes Recipient Signature: Yes Med Rec Note Co-signed by Attending: Coverage Notice Comment: Last DP export: 05/06/19 3:34 p Patient Name: MOIZ MALONE Page 50670 at 2000 All edits/amendments must be made on the electronic document DICTATION DATE: 05/06/191999 BRIDGE RIGGER: LAKISHA 05/06/191999 RPT#: [id number] DC DATE:05/06/19 STATUS: DIS IN [address] [place] [address] END OF REPORT
--- NOTE | 2019-05-06 20:13 | MORECARE ---
CASE MANAGEMENT DISCHARGE SUMMARY PATIENT: MOIZ MALONE UNIT: [id number] ADM DATE: 05/03/19 AGE: 38 : [birth year] SEX: F ROOM/BED: D.1206 AUTHOR: GEOVANNA,DOC PHYSICIAN: REFERRING PHYSICIAN: ELIJAH HOLLINGSWORTH MD DATE OF SERVICE: 05/06/19 Discharge Plan Patient Name: MOIZ MALONE Facility: [facility]:[place] : 1980 Planned Disposition: Home Anticipated Discharge Date: Discharge Date: 05/06/2019 Expected LOS: Initial Reviewer: [email or web address] Initial Review Date: 05/03/2019 Generated: 05/06/19 9:13 pm Comments DCP- Discharge Planning Updated by [email or web address]: Lexie Last on 05/06/19 6:[address] CM contacted multiple agencies trying to find a company that could accept a daily dressing change. [facility] stated they could see patient tomorrow but patient will need to have a trainable caregiver. CM spoke with patient she stated that her is gone a lot and didn't know if could do it daily. She then stated that she had a friend that she could check with to do dressing changes but she would have to check with her after she gets off work. CM awaiting to let [facility] know if patient has a caregiver. Patient got back with CM after 3:30 that the friend has agreed to assist with dressing changes when home health not available to change. CM contacted [facility] and faxed records. CM will continue to follow and assist as needed with discharge planning / needs. DCP- Discharge Planning Updated by [email or web address]: Lexie Last on 05/05/19 2:[address] Patient Name: MOIZ MALONE Admission Status: ER Accout number: [id number] Admission Date: 05-03-2019 : 1980 Admission Diagnosis: Attending: ELIJAH HOLLINGSWORTH Current LOS: 2 Anticipated DC Date: Planned Disposition: Home Primary Insurance: [place] [employer]IONS TRE Discharge Planning Comments: CM met with patient at bedside after explaining CM role and obtaining verbal consent. Patient lives at home with her and 2 yr old daughter and plans to return there upon discharge. Patient is concerned that she may have MRSA and worried about being around her 2 yr old. CM discussed availability / needs of home health and medical equipment. Patient states that she will need Home Health for dressing changes upon discharge. Patient states she will have family drive her home upon discharge. NELY signed for . CM will continue to follow and assist as needed with discharge planning / needs. Integrity Manager: Lexie Last DCPIA - Discharge Planning Initial Assessment Updated by [email or web address]: Lexie Last on 05/05/19 2:54 pm * Is the patient Alert and Oriented? Yes * Preadmission Environment Home with Family * ADLs Independent * List name and contact numbers for known caregivers / representatives who currently or will assist patient after discharge: LIANET HARRINGTON - [facility] - [phone] * Verbal permission to speak to the caregivers and representatives has been obtained from the patient. Yes * Additional services required to return to the preadmission environment? No * Can the patient safely return to the preadmission environment? Yes * Has this patient been hospitalized within the prior 30 days at any hospital? No Coverage Notice Reviewer: [id number] - Lexie Last Notice Issued Date-Time: 05/06/2019 11:30 Notice Type: Patient Choice Letter Notice Delivered To: Patient Relationship to Patient: Self Comb Tender Name: Delivery Method: HAND - Hand Delivered Marcia Days: Prior Verbal Notification: Recipient Understood Notice: Yes Recipient Signature: Yes Med Rec Note Co-signed by Attending: Coverage Notice Comment: Last DP export: 05/06/19 7:00 p Patient Name: MOIZ MALONE Page [id number] at 2013 All edits/amendments must be made on the electronic document DICTATION DATE: 05/06/192011 TWX OPERATOR: LAKISHA 05/06/192011 RPT#: [id number] DC DATE:05/06/19 STATUS: DIS IN [facility] [address] [place] [address] END OF REPORT
== END 2019-05-06 17:10 | disposition home health service (06) ==
LOC: D.ER 11:31 → D.M3 15:17 → OBSVTIME 15:18 → D.M3 05-06 17:10
PROVIDERS: Emergency Medicine; Internal Medicine Nephrology; ADMIT Family Medicine; ATTEND Family Medicine
DX: L02.31 Cutaneous abscess of buttock (principal); E11.9 Type 2 diabetes mellitus without complications; I10 Essential (primary) hypertension; E87.1 Hypo-osmolality and hyponatremia; D69.6 Thrombocytopenia, unspecified; F17.203 Nicotine dependence unspecified, with withdrawal; D50.9 Iron deficiency anemia, unspecified

== ENCOUNTER 2019-05-27 11:33 | Emergency (ER) | payer MEDICAID ==
[~2019-05-27] VITALS: Ht 172.7 cm; Wt 103.0 kg
[~2019-05-27 11:33] MED LIST changes: +BASAGLAR K100 UNIT/1 SC; +COZAAR100 MG PO; +NOVOLOG100 UNIT/1 SC; +SULFAMETHOXAZOL1 TA2 PO
[2019-05-27 11:36] VITALS: Ht 172.7 cm; Wt 103.0 kg
[2019-05-27 12:52] LABS: BASOPHILS 0.4 % (0-2); EOSINOPHILS 1.4 % (0-7); HEMATOCRIT 38.7 % (36.0-48.0); HEMOGLOBIN 13.3 g/dL (12-16); IMMATURE GRANULOCYTES 0.1 % (0-5); LYMPHOCYTES 32.8 % (15-50); MCH 26.4 pg (26.0-34.0); MCHC 34.4 g/dL (31.0-37.0); MCV 76.9 fL (80.0-100.0); MEAN PLATELET VOLUME 12.5 fL (7.4-10.4); MONOCYTES 6.5 % (2-11); NEUTROPHILS 58.8 % (40-80); PLATELET COUNT 104 10x3/uL (130-400); RBC 5.03 10x6/uL (4.00-5.40); WBC 7.3 10x3/uL (4.8-10.8)
[2019-05-27 13:08] LABS: KETONE - SERUM NEGATIVE (NEGATIVE)
[2019-05-27 13:09] LABS: ALBUMIN 3.2 g/dL (3.4-5.0); ALKALINE PHOSPHATASE 100 U/L (46-116); ALT (SGPT) 37 U/L (10-68); BILIRUBIN - TOTAL 0.51 mg/dL (0.2-1.3); CALC OSMOLALITY 287 mosm/kg (275-300); CALCIUM 8.9 mg/dL (8.5-10.1); CARBON DIOXIDE 31.6 mmol/L (21.0-32.0); CHLORIDE - SERUM 103 mmol/L (98-107); CREATININE - SERUM 0.8 mg/dL (0.6-1.3); POTASSIUM - SERUM 3.8 mmol/L (3.5-5.1); SODIUM 141 mmol/L (136-145); UREA NITROGEN 12 mg/dL (7-18); eGFR NON AFRICAN AMERICAN 86 mL/min (90-120)
[2019-05-27 13:10] LABS: GLUCOSE 223 mg/dL (74-106)
[2019-05-27 13:11] LABS: TROPONIN-I < 0.017 ng/mL (0.000-0.060)
[2019-05-27] MEDS ORDERED: ALBUTEROL SULF8.5 GM INH (14:11)
[2019-05-27 14:45] VITALS: BP 119/84
== END 2019-05-27 14:52 | disposition home or self-care (01) ==
LOC: D.ER 11:33
PROVIDERS: Family Medicine
DX: R42 Dizziness and giddiness (principal); M54.2 Cervicalgia; R51 Headache; E11.9 Type 2 diabetes mellitus without complications; I10 Essential (primary) hypertension

== ENCOUNTER 2019-06-05 11:42 | Emergency (ER) | payer MEDICAID ==
[~2019-06-05] VITALS: Ht 172.7 cm; Wt 108.2 kg
[~2019-06-05 11:42] MED LIST changes: +ALBUTEROL SULF8.5 GM INH
[2019-06-05 11:56] VITALS: Ht 172.7 cm; Wt 108.2 kg
[2019-06-05 12:30] LABS: BASOPHILS 0.4 % (0-2); EOSINOPHILS 1.8 % (0-7); HEMATOCRIT 37.6 % (36.0-48.0); HEMOGLOBIN 13.1 g/dL (12-16); IMMATURE GRANULOCYTES 0.1 % (0-5); LYMPHOCYTES 32.1 % (15-50); MCH 26.7 pg (26.0-34.0); MCHC 34.8 g/dL (31.0-37.0); MCV 76.6 fL (80.0-100.0); MEAN PLATELET VOLUME 12.3 fL (7.4-10.4); MONOCYTES 4.8 % (2-11); NEUTROPHILS 60.8 % (40-80); PLATELET COUNT 89 10x3/uL (130-400); RBC 4.91 10x6/uL (4.00-5.40); RDW 13.1 % (11.5-14.5); WBC 7.4 10x3/uL (4.8-10.8)
[2019-06-05 12:35] LABS: APPEARANCE CLEAR (CLEAR); BILIRUBIN NEGATIVE (NEGATIVE); COLOR YELLOW (YELLOW); GLUCOSE 1000 mg/dL (NEGATIVE); KETONE NEGATIVE (NEGATIVE); NITRITE NEGATIVE (NEGATIVE); PROTEIN NEGATIVE (NEGATIVE); UROBILINOGEN NORMAL (NORMAL)
[2019-06-05 12:41] LABS: KETONE - SERUM NEGATIVE (NEGATIVE)
[2019-06-05 12:44] LABS: ALBUMIN 3.1 g/dL (3.4-5.0); ALKALINE PHOSPHATASE 90 U/L (46-116); ALT (SGPT) 26 U/L (10-68); BILIRUBIN - TOTAL 0.45 mg/dL (0.2-1.3); CALC OSMOLALITY 292 mosm/kg (275-300); CALCIUM 8.1 mg/dL (8.5-10.1); CHLORIDE - SERUM 104 mmol/L (98-107); CREATININE - SERUM 0.8 mg/dL (0.6-1.3); MAGNESIUM - SERUM 1.4 mg/dL (1.8-2.4); POTASSIUM - SERUM 3.7 mmol/L (3.5-5.1); PROTEIN - SERUM 6.7 g/dL (6.4-8.2); SODIUM 138 mmol/L (136-145); UREA NITROGEN 13 mg/dL (7-18); eGFR NON AFRICAN AMERICAN 86 mL/min (90-120)
[2019-06-05 12:51] LABS: GLUCOSE 407 mg/dL (74-106)
[2019-06-05 13:31] LABS: PLATELET ESTIMATE DECREASED
[2019-06-05 13:32] LABS: ROULEAUX OCC
[2019-06-05 16:32] VITALS: BP 131/89
== END 2019-06-05 16:55 | disposition home or self-care (01) ==
LOC: D.ER 11:42
PROVIDERS: Family Medicine
DX: I10 Essential (primary) hypertension (principal)

== ENCOUNTER 2020-02-03 15:10 | Emergency (ER) | payer MEDICAID ==
[~2020-02-03] VITALS: Ht 172.7 cm; Wt 104.5 kg
[2020-02-03 15:47] VITALS: Ht 172.7 cm; Wt 104.5 kg
[2020-02-03] MEDS ORDERED: METOPROLOL TART50 MG PO (15:49)
[2020-02-03 15:51] LABS: BASOPHILS 0.2 % (0-2); EOSINOPHILS 0.3 % (0-7); HEMATOCRIT 42.3 % (36.0-48.0); HEMOGLOBIN 13.5 g/dL (12-16); IMMATURE GRANULOCYTES 0.3 % (0-5); LYMPHOCYTES 13.7 % (15-50); MCH 27.3 pg (26.0-34.0); MCHC 31.9 g/dL (31.0-37.0); MCV 85.5 fL (80.0-100.0); MEAN PLATELET VOLUME 11.7 fL (7.4-10.4); MONOCYTES 8.6 % (2-11); NEUTROPHILS 76.9 % (40-80); RBC 4.95 10x6/uL (4.00-5.40); RDW 14.1 % (11.5-14.5); WBC 6.3 10x3/uL (4.8-10.8)
[2020-02-03] MEDS ORDERED: ZITHROMAX250 MG PO (15:52)
[2020-02-03] MEDS ORDERED: OMNICEF300 MG PO (15:52)
[2020-02-03] MEDS ORDERED: ZANAFLEX4 MG PO (15:53)
[2020-02-03] MEDS ORDERED: HYDROCODON-ACE1 EAC2 PO (15:53)
[2020-02-03 16:03] LABS: APTT 22.3 SECONDS (22.8-39.4); INR 1.07 (0.85-1.17); PROTIME 13.9 SECONDS (11.6-15.0)
[2020-02-03 16:08] LABS: PLATELET COUNT 67 10x3/uL (130-400)
[2020-02-03 16:19] LABS: ALBUMIN 2.8 g/dL (3.4-5.0); ALKALINE PHOSPHATASE 152 U/L (30-120); ALT (SGPT) 59 U/L (10-68); BILIRUBIN - TOTAL 1.04 mg/dL (0.2-1.3); CALCIUM 8.3 mg/dL (8.5-10.1); CARBON DIOXIDE 25.6 mmol/L (21.0-32.0); CHLORIDE - SERUM 96 mmol/L (98-107); CREATINE KINASE 64 UL (21-215); CREATININE - SERUM 1.1 mg/dL (0.6-1.3); POTASSIUM - SERUM 3.8 mmol/L (3.5-5.1); PROTEIN - SERUM 6.6 g/dL (6.4-8.2); SODIUM 131 mmol/L (136-145); UREA NITROGEN 18 mg/dL (7-18); eGFR NON AFRICAN AMERICAN 59 mL/min (90-120)
[2020-02-03 16:20] LABS: CALC OSMOLALITY 292 mosm/kg (275-300); TROPONIN-I < 0.017 ng/mL (0.000-0.060)
[2020-02-03 16:24] LABS: GLUCOSE 604 mg/dL (74-106)
[2020-02-03 17:05] LABS: PLATELET ESTIMATE DECREASED
[2020-02-03 18:51] LABS: BILIRUBIN NEGATIVE (NEGATIVE); GLUCOSE 1000 mg/dL (NEGATIVE); KETONE NEGATIVE (NEGATIVE); NITRITE NEGATIVE (NEGATIVE); UROBILINOGEN NORMAL (NORMAL)
[2020-02-03 18:52] LABS: HCG URINE NEGATIVE (NEGATIVE)
[2020-02-03] MEDS ORDERED: PHENERGAN25 M1 PO (22:45)
[2020-02-03 23:02] VITALS: BP 140/86
== END 2020-02-03 23:02 | disposition home or self-care (01) ==
LOC: D.ER 15:10
PROVIDERS: Family Medicine
DX: E11.65 Type 2 diabetes mellitus with hyperglycemia (principal); E86.0 Dehydration; R11.2 Nausea with vomiting, unspecified; R53.1 Weakness; R05 Cough; I10 Essential (primary) hypertension; Z79.4 Long term (current) use of insulin; J45.909 Unspecified asthma, uncomplicated; R06.00 Dyspnea, unspecified

== ENCOUNTER 2020-02-08 15:33 | Inpatient (IN) | payer MEDICAID ==
[~2020-02-08] VITALS: Ht 172.7 cm; Wt 110.9 kg
[~2020-02-08 15:33] MED LIST changes: +HYDROCODON-ACE1 EAC2 PO; +OMNICEF300 MG PO; +PHENERGAN25 M1 PO; +ZANAFLEX4 MG PO; +ZITHROMAX250 MG PO
[2020-02-08 16:00] VITALS: BP 122/66
[2020-02-08 16:09] LABS: BASOPHILS 0.1 % (0-2); EOSINOPHILS 0.2 % (0-7); HEMATOCRIT 35.4 % (36.0-48.0); HEMOGLOBIN 11.5 g/dL (12-16); IMMATURE GRANULOCYTES 0.2 % (0-5); MCH 26.9 pg (26.0-34.0); MCHC 32.5 g/dL (31.0-37.0); MCV 82.7 fL (80.0-100.0); MEAN PLATELET VOLUME 11.2 fL (7.4-10.4); MONOCYTES 3.6 % (2-11); NEUTROPHILS 84.9 % (40-80); PLATELET COUNT 77 10x3/uL (130-400); RBC 4.28 10x6/uL (4.00-5.40); RDW 14.2 % (11.5-14.5); WBC 8.3 10x3/uL (4.8-10.8)
[2020-02-08 16:20] LABS: BILIRUBIN NEGATIVE (NEGATIVE); GLUCOSE 1000 mg/dL (NEGATIVE); KETONE NEGATIVE (NEGATIVE); NITRITE POSITIVE (NEGATIVE); UROBILINOGEN NORMAL (NORMAL)
[2020-02-08 16:22] LABS: BACTERIA MANY /hpf (NEGATIVE); EPITHELIAL CELLS 0-5 /hpf (0-5); RED CELLS - URINE 0-5 /hpf (0-5); WHITE CELLS - URINE 25-50 /hpf (NEGATIVE)
[2020-02-08 16:25] LABS: ALBUMIN 2.3 g/dL (3.4-5.0); ANION GAP 9.6 mmol/L (8-16); BILIRUBIN - TOTAL 0.83 mg/dL (0.2-1.3); CALCIUM 8.6 mg/dL (8.5-10.1); CARBON DIOXIDE 26.7 mmol/L (21.0-32.0); CREATININE - SERUM 1.4 mg/dL (0.6-1.3); POTASSIUM - SERUM 3.3 mmol/L (3.5-5.1); PROTEIN - SERUM 7.1 g/dL (6.4-8.2)
[2020-02-08 16:34] LABS: PLATELET ESTIMATE DECREASED
--- NOTE | 2020-02-08 17:00 | NUR ---
I have reviewed this patient and I concur with the Shift Assessment completed by the Licensed Practical Nurse today this shift.
--- NOTE | 2020-02-08 17:03 | NUR ---
CRITICAL LAB: LACTIC ACID 2.7 [place] BURKETT NOTIFIED
[2020-02-08 18:20] VITALS: BP 147/78
[2020-02-08 20:27] VITALS: BP 147/79
[2020-02-08 21:48] VITALS: BMI 35.0
[2020-02-08 23:43] VITALS: BP 124/70
[2020-02-09 05:23] VITALS: BP 127/59
[2020-02-09 06:45] LABS: BASOPHILS 0.1 % (0-2); EOSINOPHILS 0.7 % (0-7); HEMATOCRIT 33.8 % (36.0-48.0); HEMOGLOBIN 10.7 g/dL (12-16); IMMATURE GRANULOCYTES 0.3 % (0-5); LYMPHOCYTES 21.8 % (15-50); MCH 26.1 pg (26.0-34.0); MCHC 31.7 g/dL (31.0-37.0); MCV 82.4 fL (80.0-100.0); MEAN PLATELET VOLUME 11.3 fL (7.4-10.4); MONOCYTES 6.7 % (2-11); NEUTROPHILS 70.4 % (40-80); PLATELET COUNT 69 10x3/uL (130-400); RDW 14.4 % (11.5-14.5)
[2020-02-09 06:52] LABS: ANION GAP 8.4 mmol/L (8-16); CALCIUM 8.1 mg/dL (8.5-10.1); CARBON DIOXIDE 29.1 mmol/L (21.0-32.0); MAGNESIUM - SERUM 1.6 mg/dL (1.8-2.4); PHOSPHOROUS 3.3 mg/dL (2.5-4.9); POTASSIUM - SERUM 3.5 mmol/L (3.5-5.1)
[2020-02-09 09:21] VITALS: BP 168/80
[2020-02-09 13:03] VITALS: BP 127/73
[2020-02-09 13:11] VITALS: Ht 172.7 cm; Wt 110.9 kg
[2020-02-09 17:38] VITALS: BP 119/73
[2020-02-09 21:31] VITALS: BP 159/85
--- NOTE | 2020-02-09 23:25 | NUR ---
RAPID RESPONSE CALLED AT THIS TIME. PT WAS FOUND TO BE UNCONTROLLABLY SHAKING, TEMP OF 103.1, RESP RATE 22, BP 90/54 MANUAL, HR 114. ICE PACKS PLACED ON PT AXILLAY BILAT AND GROIN. PO TYLENOL GIVEN AT THIS TIME.
--- NOTE | 2020-02-09 23:40 | NUR ---
ONCE RAPID RESPONSE WAS ENDED, PT STARTED TO PROJECTILE VOMIT AND MUMBLE INCOHERENTLY WHILE PROCCEDING TO SHAKE UNCONTROLLABLY. BRITTNEY JOYA APN PAGED AT THIS TIME.
--- NOTE | 2020-02-10 00:01 | NUR ---
RECTAL TEMP TAKEN AT THIS TIME PER BRITTNEY JOYA APN. RECTAL TEMP OF 105.8. NEW ORDERS FOR TYLENOL SUPP, IV ZOFRAN DTT. PT IS NO LONGER SHAKING UNCONTROLLABLY. ASSISTED PT TO BATHROOM, GAIT UNSTEADY. PT VOIDED DARK YELLOW URINE. CL IN REACH, BED IN LOWEST POSITION.
[2020-02-10 00:30] VITALS: BP 155/98
[2020-02-10 00:44] LABS: ANION GAP 11.7 mmol/L (8-16); CALCIUM 8.3 mg/dL (8.5-10.1); CARBON DIOXIDE 28.2 mmol/L (21.0-32.0); CREATININE - SERUM 1.1 mg/dL (0.6-1.3); MAGNESIUM - SERUM 1.4 mg/dL (1.8-2.4); POTASSIUM - SERUM 3.9 mmol/L (3.5-5.1)
--- NOTE | 2020-02-10 02:15 | NUR ---
PT RECATAL TEMP 104.7. BRITTNEY JOYA APN PAGED AT THIS TIME.
--- NOTE | 2020-02-10 02:37 | NUR ---
BRITTNEY JOYA APN PAGED AGAIN AT THIS TIME.
--- NOTE | 2020-02-10 04:13 | NUR ---
PT RECTAL TEMP 101.4 AT THIS TIME.
[2020-02-10 04:39] VITALS: BP 120/67
[2020-02-10 06:33] LABS: BASOPHILS 0.1 % (0-2); EOSINOPHILS 0 % (0-7); HEMATOCRIT 32.6 % (36.0-48.0); HEMOGLOBIN 10.6 g/dL (12-16); IMMATURE GRANULOCYTES 0.3 % (0-5); LYMPHOCYTES 6.7 % (15-50); MCH 26.6 pg (26.0-34.0); MCHC 32.5 g/dL (31.0-37.0); MCV 81.7 fL (80.0-100.0); MONOCYTES 6.4 % (2-11); NEUTROPHILS 86.5 % (40-80); PLATELET COUNT 67 10x3/uL (130-400); RBC 3.99 10x6/uL (4.00-5.40); RDW 14.5 % (11.5-14.5)
[2020-02-10 06:36] LABS: WBC 9.2 10x3/uL (4.8-10.8)
[2020-02-10 06:42] LABS: ANION GAP 11.2 mmol/L (8-16); CALCIUM 8.3 mg/dL (8.5-10.1); CARBON DIOXIDE 27.5 mmol/L (21.0-32.0); CREATININE - SERUM 1.2 mg/dL (0.6-1.3); MAGNESIUM - SERUM 1.4 mg/dL (1.8-2.4); POTASSIUM - SERUM 3.7 mmol/L (3.5-5.1)
--- NOTE | 2020-02-10 07:49 | NUR ---
PATIENTS TEMPERATURE IS 97.8 THIS AM. WILL CONTINUE TO MONITOR FOR JUMP IN TEMP. PT IS LETHARGIC AND SLOW TO RESPOND.
[2020-02-10 07:59] VITALS: BP 139/75
[2020-02-10 10:47] LABS: PLATELET ESTIMATE DECREASED
[2020-02-10 10:49] LABS: ROULEAUX OCC
[2020-02-10 11:41] VITALS: BP 142/75
--- NOTE | 2020-02-10 11:50 | NUR ---
PTS BLOOD SUGAR 391. INSULIN GIVEN BARRERA COLLAZON COSIGNED INSULIN
[2020-02-10 16:33] VITALS: BP 155/85
--- NOTE | 2020-02-10 19:00 | NUR ---
EVENING ROUNDS COMPLETE. PT SITTING UP IN BED EATING TRAY. NO SIGNS OF DISTRESS. PT DENIES ANY PAIN OR NEEDS AT THIS TIME. PT STATES SHE FEELS EXTRA WEEK. TEACHING ON IMPORTANCE ON CALLING FOR ASSISTANCE. PT VOICED UNDERSTANDING. CALL LIGHT IN REACH, BED IN LOWEST POSITION.
[2020-02-10 20:00] VITALS: BP 112/60
[2020-02-11] VITALS: BP 97/62
[2020-02-11 04:00] VITALS: BP 127/75
--- NOTE | 2020-02-11 06:43 | NUR ---
PT REFUSED PT TO [facility]
[2020-02-11 07:04] LABS: BASOPHILS 0.2 % (0-2); EOSINOPHILS 0.5 % (0-7); HEMATOCRIT 35.6 % (36.0-48.0); HEMOGLOBIN 11.4 g/dL (12-16); IMMATURE GRANULOCYTES 0.4 % (0-5); LYMPHOCYTES 13.2 % (15-50); MCH 26.3 pg (26.0-34.0); MEAN PLATELET VOLUME 10.9 fL (7.4-10.4); MONOCYTES 3.1 % (2-11); NEUTROPHILS 82.6 % (40-80); RBC 4.34 10x6/uL (4.00-5.40); RDW 14.8 % (11.5-14.5); WBC 8.3 10x3/uL (4.8-10.8)
[2020-02-11 07:18] LABS: ANION GAP 8.8 mmol/L (8-16); CALCIUM 8.2 mg/dL (8.5-10.1); CARBON DIOXIDE 29.7 mmol/L (21.0-32.0); MAGNESIUM - SERUM 1.7 mg/dL (1.8-2.4); PHOSPHOROUS 2.6 mg/dL (2.5-4.9); POTASSIUM - SERUM 3.5 mmol/L (3.5-5.1)
[2020-02-11 07:28] LABS: PLATELET COUNT 99 10x3/uL (130-400)
--- NOTE | 2020-02-11 08:08 | NUR ---
PT RECEIVED AWAKE AND ALERT. IR STATES NOT GOING TO DO DRAIN PLACEMENT SO PT CAN EAT.
[2020-02-11 09:25] VITALS: BP 155/89
--- NOTE | 2020-02-11 09:46 | NUR ---
PT STILL TO [facility] NO UPDRAFT GIVEN
[2020-02-11 13:45] VITALS: BP 117/65
[2020-02-11 17:51] VITALS: BP 160/89
[2020-02-11 20:00] VITALS: BP 142/80
[2020-02-12] VITALS: BP 145/108
[2020-02-12 04:00] VITALS: BP 117/72
--- NOTE | 2020-02-12 07:50 | MORECARE ---
CASE MANAGEMENT DISCHARGE SUMMARY PATIENT: MOIZ MALONE UNIT: [id number] ADM DATE: 02/08/20 AGE: 39 : 82 SEX: F ROOM/BED: D.2137 AUTHOR: DELILAH AUSTIN PHYSICIAN: REFERRING PHYSICIAN: MARGARITA ABEBE MD DATE OF SERVICE: 02/12/20 Discharge Plan Patient Name: MOIZ MALONE Facility: [facility]:[place] : 1980 Planned Disposition: Home with Home Health Anticipated Discharge Date: Discharge Date: Expected LOS: Initial Reviewer: [email or web address] Initial Review Date: 02/08/2020 Generated: 02/12/20 8:50 am Patient Name: MOIZ MALONE Page [id number] at 0750 All edits/amendments must be made on the electronic document DICTATION DATE: 02/12/20 075 BISQUE BRUSHER: LAKISHA 02/12/20 [facility]0 RPT#: [id number] DC DATE: STATUS: ADM IN [facility] [address] [place] [address] END OF REPORT
--- NOTE | 2020-02-12 07:59 | MORECARE ---
CASE MANAGEMENT DISCHARGE SUMMARY PATIENT: MOIZ MALONE UNIT: [id number] ADM DATE: 02/08/20 AGE: 39 : [birth year] SEX: F ROOM/BED: D.4913 AUTHOR: GEOVANNA,DOC PHYSICIAN: REFERRING PHYSICIAN: MARGARITA ABEBE MD DATE OF SERVICE: 02/12/20 Discharge Plan Patient Name: MOIZ MALONE Facility: [facility]:[place] : 1980 Planned Disposition: Home with Home Health Anticipated Discharge Date: Discharge Date: Expected LOS: Initial Reviewer: [email or web address] Initial Review Date: 02/08/2020 Generated: 02/12/20 8:58 am Comments DCP- Discharge Planning Updated by [email or web address]: Regi Myrick on 02/12/20 6:[address] Patient Name: MOIZ MALONE Admission Status: ER Accout number: [id number] Admission Date: 02-08-2020 : 1980 Admission Diagnosis:FEVER, UNSPECIFIED Attending: MARGARITA ABEBE Current LOS: 4 Anticipated DC Date: Planned Disposition: Home with Home Health Primary Insurance: [facility] PRIVATE OPTIONS TRE Late Entry: Assessment completed at 1517 02/11/20 Discharge Planning Comments: CM met with patient to complete initial dc planning assessment. CM educated patient on the CM role and verbal consent given by patient to complete assessment. CM verified patient's address, phone number, and emergency contact phone numbers. Patient lives at with home with her (Darcy) [phone], but is . At discharge patient plans to move in with her mother in [place]. CM discussed the anticipated need for HH and infusion services. NELY signed to initiate [facility], and [facility]. CM will fax referral. Transportation provider at discharge will be her mother, with her as a backup . CM will continue to follow and will assist as needed with dc plans/needs. Bow Making Machine Operator: Regi Myrick MSN,RN,CM DCPIA - Discharge Planning Initial Assessment Updated by [email or web address]: Regi Myrick on 02/12/20 7:52 am * Is the patient Alert and Oriented? Yes * How many steps to enter\exit or inside your home? 0/0 * PCP Dr Pate * [facility] * Preadmission Environment Home Alone * ADLs Independent * Equipment None * List name and contact numbers for known caregivers / representatives who currently or will assist patient after discharge: Marissa (mother) [phone] Sj ( as a backup) they are [phone] * Verbal permission to speak to the caregivers and representatives has been obtained from the patient. Yes * Community resources currently utilized None * Additional services required to return to the preadmission environment? Yes * Can the patient safely return to the preadmission environment? Yes * Has this patient been hospitalized within the prior 30 days at any hospital? No Last DP export: 02/12/20 6:50 a Patient Name: MOIZ MALONE Page 81878 at 0759 All edits/amendments must be made on the electronic document DICTATION DATE: 02/12/20757 HELP DESK TEAM LEADER: LAKISHA 02/12/20 075 RPT#: [id number] DC DATE: STATUS: ADM IN [facility] [address] [place] [address] END OF REPORT
[2020-02-12 08:04] VITALS: BP 127/54; BP 139/65
[2020-02-12 09:16] LABS: BASOPHILS 0.1 % (0-2); EOSINOPHILS 0.4 % (0-7); HEMATOCRIT 34.1 % (36.0-48.0); IMMATURE GRANULOCYTES 0.3 % (0-5); LYMPHOCYTES 16.1 % (15-50); MCH 26.3 pg (26.0-34.0); MCHC 32.3 g/dL (31.0-37.0); MCV 81.4 fL (80.0-100.0); MEAN PLATELET VOLUME 11.7 fL (7.4-10.4); MONOCYTES 5.9 % (2-11); NEUTROPHILS 77.2 % (40-80); PLATELET COUNT 103 10x3/uL (130-400); RBC 4.19 10x6/uL (4.00-5.40); RDW 14.9 % (11.5-14.5); WBC 7.7 10x3/uL (4.8-10.8)
[2020-02-12 09:40] LABS: ANION GAP 8.5 mmol/L (8-16); CALCIUM 8.2 mg/dL (8.5-10.1); CARBON DIOXIDE 30.9 mmol/L (21.0-32.0); MAGNESIUM - SERUM 1.8 mg/dL (1.8-2.4); PHOSPHOROUS 2.8 mg/dL (2.5-4.9); POTASSIUM - SERUM 3.4 mmol/L (3.5-5.1); VANCOMYCIN - TROUGH 5.7 ug/mL (10.0-20.0)
[2020-02-12 12:49] VITALS: BP 119/74
--- NOTE | 2020-02-12 13:28 | NUR ---
Nutrition Follow-up: Diet: Diabetic PO intake: 50-100% Wt: 284# (02/10); 278.8# (02/08) Last BM: 02/10 Labs noted: K+ 3.4, Glu 209, Ca 8.2 Meds noted: Zofran, Lantus, Protonix, Pepcid, Humalog, electrolyte protocol -Encourage PO intake and honor food preferences within diet restrictions. -Monitor wt; noted daily wts ordered. -RD following.
--- NOTE | 2020-02-12 13:56 | MORECARE ---
CASE MANAGEMENT DISCHARGE SUMMARY PATIENT: MOIZ MALONE UNIT: [id number] ADM DATE: 02/08/20 AGE: 39 : 84 SEX: F ROOM/BED: D.6366 AUTHOR: GEOVANNA,DOC PHYSICIAN: REFERRING PHYSICIAN: MARGARITA ABEBE MD DATE OF SERVICE: 02/12/20 Discharge Plan Patient Name: MOIZ MALONE Facility: [facility]:[place] : 1980 Planned Disposition: Home with Home Health Anticipated Discharge Date: Discharge Date: Expected LOS: Initial Reviewer: [email or web address] Initial Review Date: 02/08/2020 Generated: 02/12/20 2:55 pm Comments DCP- Discharge Planning Updated by [email or web address]: Regi Myrick on 02/12/20 12:[address] Patient Name: MOIZ MALONE Admission Status: ER Accout number: [id number] Admission Date: 02-08-2020 : 1980 Admission Diagnosis:FEVER, UNSPECIFIED Attending: MARGARITA ABEBE Current LOS: 4 Anticipated DC Date: Planned Disposition: Home with Home Health Primary Insurance: [facility] PRIVATE OPTIONS TRE Late Entry: Assessment completed at 1517 02/11/20 Discharge Planning Comments: CM met with patient to complete initial dc planning assessment. CM educated patient on the CM role and verbal consent given by patient to complete assessment. CM verified patient's address, phone number, and emergency contact phone numbers. Patient lives at with home with her (Darcy) [phone], but is . At discharge patient plans to move in with her mother in [place]. That address is [address] [place] [address]. CM discussed the anticipated need for HH and infusion services. NELY signed to initiate [facility], and [facility]. CM will fax referral. Transportation provider at discharge will be her mother, with her as a backup . CM will continue to follow and will assist as needed with dc plans/needs. Raw Material Handler: Regi Myrick MSN,RN,CM DCPIA - Discharge Planning Initial Assessment Updated by [email or web address]: Regi Myrick on 02/12/20 7:52 am * Is the patient Alert and Oriented? Yes * How many steps to enter\exit or inside your home? 0/0 * PCP Dr Pate * Pharmacy [facility] * Preadmission Environment Home Alone * ADLs Independent * Equipment None * List name and contact numbers for known caregivers / representatives who currently or will assist patient after discharge: Marissa (mother) [phone] Sj ( as a backup) they are [phone] * Verbal permission to speak to the caregivers and representatives has been obtained from the patient. Yes * Community resources currently utilized None * Additional services required to return to the preadmission environment? Yes * Can the patient safely return to the preadmission environment? Yes * Has this patient been hospitalized within the prior 30 days at any hospital? No Last DP export: 02/12/20 6:59 a Patient Name: MOIZ MALONE Page 47527 at 1356 All edits/amendments must be made on the electronic document DICTATION DATE: 02/12/20 1355 NUCLEAR FUELS RESEARCH ENGINEER: LAKISHA 02/12/20 1355 RPT#: [id number] DC DATE: STATUS: ADM IN [facility] [address] [place] [address] END OF REPORT
--- NOTE | 2020-02-12 14:05 | MORECARE ---
CASE MANAGEMENT DISCHARGE SUMMARY PATIENT: MOIZ MALONE UNIT: [id number] ADM DATE: 02/08/20 AGE: 39 : [birth year] SEX: F ROOM/BED: D.0665 AUTHOR: GEOVANNA,DOC PHYSICIAN: REFERRING PHYSICIAN: MARGARITA ABEBE MD DATE OF SERVICE: 02/12/20 Discharge Plan Patient Name: MOIZ MALONE Facility: [facility]:[place] : 1980 Planned Disposition: Home with Home Health Anticipated Discharge Date: Discharge Date: Expected LOS: Initial Reviewer: [email or web address] Initial Review Date: 02/08/2020 Generated: 02/12/20 3:05 pm Comments DCP- Discharge Planning Updated by [email or web address]: Regi Myrick on 02/12/20 12:[address] Patient Name: MOIZ MALONE Admission Status: ER Accout number: [id number] Admission Date: 02-08-2020 : 1980 Admission Diagnosis:FEVER, UNSPECIFIED Attending: MARGARITA ABEBE Current LOS: 4 Anticipated DC Date: Planned Disposition: Home with Home Health Primary Insurance: [facility] PRIVATE OPTIONS TRE Late Entry: Assessment completed at 1517 02/11/20 Discharge Planning Comments: CM met with patient to complete initial dc planning assessment. CM educated patient on the CM role and verbal consent given by patient to complete assessment. CM verified patient's address, phone number, and emergency contact phone numbers. Patient lives at with home with her (Darcy) [phone], but is . At discharge patient plans to move in with her mother in [place]. That address is [address] [place] [address]. CM discussed the anticipated need for HH and infusion services. NELY signed to initiate [facility], and [facility]. CM will fax referral. Transportation provider at discharge will be her mother, with her as a backup . CM will continue to follow and will assist as needed with dc plans/needs. Customer Account Representative: Regi Myrick MSN,RN,CM DCPIA - Discharge Planning Initial Assessment Updated by [email or web address]: Regi Myrick on 02/12/20 7:52 am * Is the patient Alert and Oriented? Yes * How many steps to enter\exit or inside your home? 0/0 * PCP Dr Pate * Pharm[facility] * Preadmission Environment Home Alone * ADLs Independent * Equipment None * List name and contact numbers for known caregivers / representatives who currently or will assist patient after discharge: Marissa (mother) [phone] Sj ( as a backup) they are [phone] * Verbal permission to speak to the caregivers and representatives has been obtained from the patient. Yes * Community resources currently utilized None * Additional services required to return to the preadmission environment? Yes * Can the patient safely return to the preadmission environment? Yes * Has this patient been hospitalized within the prior 30 days at any hospital? No External Providers External Provider: OTHER-OTHER Next Contact Date: Service Request Date: Service Type: Resolution: Reviewer: Comments: Last DP export: 02/12/20 12:56 p Patient Name: MOIZ MALONE Page 31646 at 1405 All edits/amendments must be made on the electronic document DICTATION DATE: 02/12/20 1405 ENVIRONMENTAL PROGRAMS MANAGER: LAKISHA 02/12/20 1405 RPT#: [id number] DC DATE: STATUS: ADM IN [facility] [address] [place] [address] END OF REPORT
--- NOTE | 2020-02-12 14:33 | MORECARE ---
CASE MANAGEMENT DISCHARGE SUMMARY PATIENT: MOIZ MALONE UNIT: [id number] ADM DATE: 02/08/20 AGE: 39 : 84 SEX: F ROOM/BED: D.6360 AUTHOR: GEOVANNA,DOC PHYSICIAN: REFERRING PHYSICIAN: MARGARITA ABEBE MD DATE OF SERVICE: 02/12/20 Discharge Plan Patient Name: MOIZ MALONE Facility: [facility]:[place] : 1980 Planned Disposition: Home with Home Health Anticipated Discharge Date: Discharge Date: Expected LOS: Initial Reviewer: [email or web address] Initial Review Date: 02/08/2020 Generated: 02/12/20 3:33 pm Comments DCP- Discharge Planning Updated by [id number]: Regi Myrick on 02/12/20 12:[address] Patient Name: MOIZ MALONE Admission Status: ER Accout number: [id number] Admission Date: 02-08-2020 : 1980 Admission Diagnosis:FEVER, UNSPECIFIED Attending: MARGARITA ABEBE Current LOS: 4 Anticipated DC Date: Planned Disposition: Home with Home Health Primary Insurance: [facility] PRIVATE OPTIONS TRE Late Entry: Assessment completed at 1517 02/11/20 Discharge Planning Comments: CM met with patient to complete initial dc planning assessment. CM educated patient on the CM role and verbal consent given by patient to complete assessment. CM verified patient's address, phone number, and emergency contact phone numbers. Patient lives at with home with her (Darcy) [phone], but is . At discharge patient plans to move in with her mother in [place]. That address is [address] [place] [address]. CM discussed the anticipated need for HH and infusion services. NELY signed to initiate [facility], and [facility]. CM will fax referral. Transportation provider at discharge will be her mother, with her as a backup . CM will continue to follow and will assist as needed with dc plans/needs. Brand Communications Manager: Regi Myrick MSN,RN,CM DCPIA - Discharge Planning Initial Assessment Updated by [email or web address]: Regi Myrick on 02/12/20 7:52 am * Is the patient Alert and Oriented? Yes * How many steps to enter\exit or inside your home? 0/0 * PCP Dr Pate * Pharmacy [facility] * Preadmission Environment Home Alone * ADLs Independent * Equipment None * List name and contact numbers for known caregivers / representatives who currently or will assist patient after discharge: Marissa (mother) [phone] Sj ( as a backup) they are [phone] * Verbal permission to speak to the caregivers and representatives has been obtained from the patient. Yes * Community resources currently utilized None * Additional services required to return to the preadmission environment? Yes * Can the patient safely return to the preadmission environment? Yes * Has this patient been hospitalized within the prior 30 days at any hospital? No External Providers External Provider: [facility] Next Contact Date: Service Request Date: Service Type: Resolution: Reviewer: Comments: Last DP export: 02/12/20 1:05 p Patient Name: MOIZ MALONE Page 36394 at 1433 All edits/amendments must be made on the electronic document DICTATION DATE: 02/12/20 143 PASTE UP COPY CAMERA OPERATOR: LAKISHA 02/12/20 143 RPT#: [id number] DC DATE: STATUS: ADM IN [facility] [address] [place] [address] END OF REPORT
[2020-02-12 17:03] VITALS: BP 118/80
--- NOTE | 2020-02-12 19:05 | NUR ---
BEDSIDE REPORT RECEIVED, PT CARE ASSUMED. INTRODUCED SELF AND WROTE NAME ON BOARD. PT SITTING IN CHAIR AT BEDSIDE WATCHING TV, AAOX4. DENIES ANY NEEDS AT THIS TIME. BED IN LOWEST, CALL LIGHT WITHIN REACH. WILL CTM.
[2020-02-12 20:30] VITALS: BP 134/75
[2020-02-13 00:30] VITALS: BP 133/66
[2020-02-13 04:30] VITALS: BP 112/64
[2020-02-13 05:39] LABS: BASOPHILS 0.1 % (0-2); EOSINOPHILS 0.1 % (0-7); HEMATOCRIT 31.4 % (36.0-48.0); HEMOGLOBIN 10.3 g/dL (12-16); IMMATURE GRANULOCYTES 0.3 % (0-5); LYMPHOCYTES 5.7 % (15-50); MCH 26.7 pg (26.0-34.0); MCHC 32.8 g/dL (31.0-37.0); MCV 81.3 fL (80.0-100.0); MEAN PLATELET VOLUME 11.4 fL (7.4-10.4); MONOCYTES 5.7 % (2-11); NEUTROPHILS 88.1 % (40-80); RBC 3.86 10x6/uL (4.00-5.40); WBC 9.6 10x3/uL (4.8-10.8)
[2020-02-13 05:50] LABS: ANION GAP 9.6 mmol/L (8-16); CALCIUM 7.9 mg/dL (8.5-10.1); CARBON DIOXIDE 27.6 mmol/L (21.0-32.0); PHOSPHOROUS 2.3 mg/dL (2.5-4.9)
[2020-02-13 05:54] LABS: PLATELET COUNT 102 10x3/uL (130-400)
[2020-02-13 05:58] LABS: MAGNESIUM - SERUM 1.3 mg/dL (1.8-2.4); POTASSIUM - SERUM 4.2 mmol/L (3.5-5.1)
[2020-02-13 08:29] VITALS: BP 142/82
--- NOTE | 2020-02-13 08:30 | NUR ---
PT SITTING UP IN BED. RR EVEN AND UNLABORED. EYES CLOSED. NO DISTRESS NOTED. CALL LIGHT WITHIN REACH. BED IN LOWEST POSITION. WILL CONTINUE TO MONITOR.
[2020-02-13 13:56] VITALS: BP 158/86
--- NOTE | 2020-02-13 13:56 | NUR ---
I have reviewed this patient and I concur with the Shift Assessment completed by the Licensed Practical Nurse today this shift.
[2020-02-13 18:25] VITALS: BP 107/48
[2020-02-13 20:30] VITALS: BP 142/83
[2020-02-14 00:30] VITALS: BP 149/84
[2020-02-14 04:30] VITALS: BP 133/75
[2020-02-14 06:31] LABS: BASOPHILS 0.2 % (0-2); EOSINOPHILS 0.8 % (0-7); HEMATOCRIT 37.3 % (36.0-48.0); IMMATURE GRANULOCYTES 0.5 % (0-5); LYMPHOCYTES 14.8 % (15-50); MCH 26.3 pg (26.0-34.0); MCHC 32.2 g/dL (31.0-37.0); MCV 81.6 fL (80.0-100.0); MEAN PLATELET VOLUME 12.1 fL (7.4-10.4); MONOCYTES 6.7 % (2-11); RBC 4.57 10x6/uL (4.00-5.40); RDW 15.5 % (11.5-14.5)
[2020-02-14 06:37] LABS: PLATELET COUNT 66 10x3/uL (130-400); WBC 6.5 10x3/uL (4.8-10.8)
[2020-02-14 07:00] LABS: ANION GAP 9.4 mmol/L (8-16); CALCIUM 7.5 mg/dL (8.5-10.1); CARBON DIOXIDE 26.5 mmol/L (21.0-32.0); CREATININE - SERUM 0.9 mg/dL (0.6-1.3); MAGNESIUM - SERUM 1.4 mg/dL (1.8-2.4); PHOSPHOROUS 2.6 mg/dL (2.5-4.9); POTASSIUM - SERUM 3.9 mmol/L (3.5-5.1)
[2020-02-14 07:02] LABS: PLATELET ESTIMATE DECREASED
--- NOTE | 2020-02-14 07:42 | NUR ---
PT SITTING UP IN BED, RR EVEN AND UNLABORED ON RA. GLASS OF ICE AND ICE WATER RECIEVED PER REQUEST. DENIES FURTHER NEEDS OR PAIN AT THIS TIME. CALL LIGHT WITHIN REACH. BED IN LOWEST POSITION. WILL CONTINUE TO MONITOR.
[2020-02-14 08:48] VITALS: BP 151/78
--- NOTE | 2020-02-14 11:44 | NUR ---
I have reviewed this patient and I concur with the Shift Assessment completed by the Licensed Practical Nurse today this shift.
[2020-02-14 12:59] VITALS: BP 144/85
--- NOTE | 2020-02-14 17:29 | NUR ---
PT ESCORTED OUT VIA WHEELCHIAR TO [facility].
--- NOTE | 2020-02-14 17:45 | NUR ---
CALL LIGHT ANSWERED. PT STATES SHE FEELS IF A FEVER IS COMING ON. TEMP IS 99.2. NORCO RECIEVED FOR PAIN AND WAS EDUCATED THAT IT ALSO HAS ACETAMINOPHEN IN IT AND CAN HELP WITH FEVER. TEMP RECHECKED APROX. 10 MINUTES LATER, 101.4. TYLENOL RECIEVED PER ORDER. ICE PACKS PUT UNDER ARMS AND IN BETWEEN LEGS. FAN TURNED ON AND TOWARD PT. REMOVED BLANKET. COLD WASH RAG PLACED ON FOREHEAD. RECHECKED APPROX. 30 MINUTES LATER. TEMP 102.7. MOTRIN RECIEVED PER ORDER. CALLED AND SPOKE WITH ANDRAE. ORDERS RECIEVED FOR BLOOD CULTURES AND KIDNEY ULTRASOUND. RECHECKED AT 1855 102.9. WILL RECIEVE RECTAL TYLENOL
[2020-02-14 18:04] VITALS: BP 163/80
--- NOTE | 2020-02-14 19:10 | NUR ---
BEDSIDE REPORT RECEIVED, PT CARE ASSUMED. WROTE NAME ON BOARD. PT LYING IN BED, AAOX4. C/O "EYES ARE HOT." PLACED COOL WET WASH CLOTH OVER PT'S EYES. DENIES ANY OTHER NEEDS AT THIS TIME. BED IN LOWEST, SR X2, CALL LIGHT WITHIN REACH. WILL CTM.
[2020-02-14 20:00] VITALS: BP 118/64
[2020-02-15] VITALS: BP 115/67
[2020-02-15 04:00] VITALS: BP 138/83
[2020-02-15 07:02] LABS: ANION GAP 9.6 mmol/L (8-16); CALCIUM 8.3 mg/dL (8.5-10.1); CARBON DIOXIDE 28.2 mmol/L (21.0-32.0); CREATININE - SERUM 0.9 mg/dL (0.6-1.3); MAGNESIUM - SERUM 1.5 mg/dL (1.8-2.4)
[2020-02-15 07:03] LABS: POTASSIUM - SERUM 4.8 mmol/L (3.5-5.1)
--- NOTE | 2020-02-15 07:22 | NUR ---
REPORT RECIEVED. PT SITTING ON BEDSIDE. RR EVEN AND UNLABORED ON RA. PT HAS A R FA PIV INFUSING ZOFRAN @ 4.7 AND A R UPPER ARM INFUSING NS @ 100. PT IS COMPLAINING OF BODY PAIN AND SHAKING FROM THE FEVER. FEVER CURRENTLY 102. BED LOCKED AND IN LOWEST POSITION, CALL LIGHT WITHIN REACH. WILL CTM
[2020-02-15 07:32] LABS: BASOPHILS 0.2 % (0-2); EOSINOPHILS 0.5 % (0-7); HEMATOCRIT 34.7 % (36.0-48.0); HEMOGLOBIN 11.2 g/dL (12-16); IMMATURE GRANULOCYTES 0.6 % (0-5); LYMPHOCYTES 9.6 % (15-50); MCH 26.7 pg (26.0-34.0); MCHC 32.3 g/dL (31.0-37.0); MCV 82.8 fL (80.0-100.0); MEAN PLATELET VOLUME 11.2 fL (7.4-10.4); MONOCYTES 2.8 % (2-11); NEUTROPHILS 86.3 % (40-80); RBC 4.19 10x6/uL (4.00-5.40); RDW 15.6 % (11.5-14.5)
[2020-02-15 08:00] LABS: PLATELET COUNT 122 10x3/uL (130-400); WBC 12.4 10x3/uL (4.8-10.8)
[2020-02-15 10:37] VITALS: BP 111/69
[2020-02-15 14:17] VITALS: BP 143/83
--- NOTE | 2020-02-15 15:00 | NUR ---
UPON ENTERING THE ROOM PT STATES SHE THINKS HER FEVER HAS COME BACK. UPON CHECKING HER TEMP IT WAS 103.3. APPLIED ICE BAGS TO GROIN AND UNDERARMS ALONG WITH GIVING A RECTAL TYLENOL. WILL CTM
--- NOTE | 2020-02-15 15:34 | NUR ---
PT FEVER STILL 103.1. CALLED TO INFORM HIM OF SITUATION. WILL CTM
--- NOTE | 2020-02-15 16:40 | NUR ---
I have reviewed this patient and I concur with the Shift Assessment completed by the Licensed Practical Nurse today this shift.
--- NOTE | 2020-02-15 19:00 | NUR ---
EVENING ROUNDS COMLETE. PT SITTING UP IN BED. NO SIGNS OF DISTRESS NOTED. PT REQUEST TO CALL DR TO HAVE PRN DILAUDID RESTARTED. EXPLAINED TO PT PRN NORCO IS AVAILABLE AND THAT WOULD NEED TO BE TAKEN FIRST. PT STATED "THE DILAUDID NEEDS TO BE RESTRATED BECAUSE I TAKE NORCO AT HOME."
[2020-02-15 20:00] VITALS: BP 143/81
--- NOTE | 2020-02-15 20:00 | NUR ---
SPOKE WITH [facility]. NOT TO RESTART DILAUDID AT THIS TIME. PT NORCO CHANGED FROM Q8 TO Q6.
[2020-02-16] VITALS: BP 108/71
[2020-02-16 04:00] VITALS: BP 111/69
[2020-02-16 06:38] LABS: CALC OSMOLALITY 287 mosm/kg (275-300); CALCIUM 7.3 mg/dL (8.5-10.1); CARBON DIOXIDE 25.9 mmol/L (21.0-32.0); CHLORIDE - SERUM 105 mmol/L (98-107); CREATININE - SERUM 0.8 mg/dL (0.6-1.3); GLUCOSE 291 mg/dL (74-106); SODIUM 138 mmol/L (136-145); UREA NITROGEN 14 mg/dL (7-18); eGFR NON AFRICAN AMERICAN 85 mL/min (90-120)
[2020-02-16 06:39] LABS: POTASSIUM - SERUM 3.9 mmol/L (3.5-5.1)
[2020-02-16 07:00] LABS: BASOPHILS 0.3 % (0-2); EOSINOPHILS 0.9 % (0-7); HEMATOCRIT 27.5 % (36.0-48.0); HEMOGLOBIN 8.9 g/dL (12-16); IMMATURE GRANULOCYTES 0.2 % (0-5); LYMPHOCYTES 19.3 % (15-50); MCH 26.5 pg (26.0-34.0); MCHC 32.4 g/dL (31.0-37.0); MCV 81.8 fL (80.0-100.0); MEAN PLATELET VOLUME 11.3 fL (7.4-10.4); MONOCYTES 8.1 % (2-11); NEUTROPHILS 71.2 % (40-80); PLATELET COUNT 88 10x3/uL (130-400); RBC 3.36 10x6/uL (4.00-5.40); RDW 15.7 % (11.5-14.5); WBC 6.4 10x3/uL (4.8-10.8)
--- NOTE | 2020-02-16 07:47 | NUR ---
REPORT RECIEVED. PT LYING ON LEFT SIDE. RR EVEN AND NONLABORED ON RA. SHE HAS A R FA PIV INFUSING NS @ 100 AND ZOFRAN @ 4.7. BED LOCKED AND IN LOWEST POSITION, CALL LIGHT WITHIN REACH. WILL CTM
[2020-02-16 09:30] VITALS: BP 142/77
[2020-02-16 11:05] LABS: PLATELET ESTIMATE DECREASED; PLATELET MORPHOLOGY NORMAL PLT MORPH
[2020-02-16 11:52] VITALS: BP 133/74
--- NOTE | 2020-02-16 13:55 | NUR ---
Nutrition Follow-up: Ate 100% this AM. Diet: Diabetic No new wt; last wt: 284# (02/10) Labs noted: Glu 291, Ca 7.3 Meds noted: Zofran, Lantus, Protonix, Pepcid, Humalog, electrolyte protocol -Need new wt; noted daily wts ordered. -RD following.
--- NOTE | 2020-02-16 15:44 | NUR ---
I have reviewed this patient and I concur with the Shift Assessment completed by the Licensed Practical Nurse today this shift.
--- NOTE | 2020-02-16 15:58 | NUR ---
PT VERY SICK / N/V WHEN I WENT TO DO EXAM. PER PT AND NURSE UNABLE TO DO TONIGHT. PER NURSE, DO AM. [facility]
--- NOTE | 2020-02-16 16:00 | NUR ---
PT BEGAN SHAKING STATING SHE WAS COLD. TEMP CHECKED ORALLY, 100.8. TYLENOL SUPPOSITORY RECIEVED. ICE PACKS PLACED BETWEEN LEGS, ON NECK, AND ON WRIST. COLD WASH CLOTH ON FOREHEAD RECHECKED X15 MINUTES LATER 100.0.
--- NOTE | 2020-02-16 17:13 | NUR ---
SPOKE WITH PTs MOTHER, STATES SHE IS NOT HAPPY BECAUSE PT KEEPS SPIKING FEVER AND NO ONE HAS ANSWERS FOR HER. SHE REFUSED TO SPEAK WITH ME ABOUT PTS CARE. STATED SHE WANTED TO SPEAK WITH A . ATTEMPTED TO PAGE DR. MICHEL AND ANSWERING SERVICE WOULD NOT ALLOW CALLS TO GO THROUGH TO HER. SPOKE WITH AURELIA AND SHE STATED SHE WOULD HANDLE THE SITUATION. UPDATED PHONE NUMBER FOR EDGAR MABRY (MOTHER) [phone]
[2020-02-16 17:47] VITALS: BP 162/97
--- NOTE | 2020-02-16 19:31 | NUR ---
EVENING ROUNDS COMPLETE. PT SITTING UP IN BED. NO SIGNS OF DISTRESS. AAOX4. PT STATES "YOU NEED TO TAKE MY TEMPERATURE AGAIN, ITS BEEN A FEW MINUTES SINCE IT WAS LAST TAKEN AND I NEED TO KNOW WHAT IT IS NOW." EXPLAINED TO PT THAT IT IS NOT BENEFICIAL TO CONSTANTLY TAKE TEMPERATURE. ICE PACKS WHERE IN PLACE UNDER ARMS AND IN GROIN. FAN ON AND FACING PT. NO COVERS ON BED. LAST TEMPERATURE THAT WAS TAKEN WAS 99.7 ORAL. CL IN REACH, BED IN LOWEST POSITION.
[2020-02-16 20:00] VITALS: BP 145/73
[2020-02-17] VITALS: BP 136/82
[2020-02-17 04:00] VITALS: BP 146/80
[2020-02-17 06:30] LABS: BASOPHILS 0.2 % (0-2); EOSINOPHILS 1.6 % (0-7); HEMATOCRIT 28.3 % (36.0-48.0); HEMOGLOBIN 9.1 g/dL (12-16); IMMATURE GRANULOCYTES 0.4 % (0-5); LYMPHOCYTES 31.6 % (15-50); MCH 26.5 pg (26.0-34.0); MCHC 32.2 g/dL (31.0-37.0); MCV 82.3 fL (80.0-100.0); MEAN PLATELET VOLUME 10.9 fL (7.4-10.4); MONOCYTES 7.4 % (2-11); NEUTROPHILS 58.8 % (40-80); PLATELET COUNT 104 10x3/uL (130-400); RBC 3.44 10x6/uL (4.00-5.40); RDW 15.9 % (11.5-14.5); WBC 5.6 10x3/uL (4.8-10.8)
[2020-02-17 06:53] LABS: CALC OSMOLALITY 274 mosm/kg (275-300); CALCIUM 7.6 mg/dL (8.5-10.1); CARBON DIOXIDE 28.5 mmol/L (21.0-32.0); CHLORIDE - SERUM 105 mmol/L (98-107); CREATININE - SERUM 0.8 mg/dL (0.6-1.3); GLUCOSE 149 mg/dL (74-106); POTASSIUM - SERUM 3.9 mmol/L (3.5-5.1); SODIUM 136 mmol/L (136-145); UREA NITROGEN 12 mg/dL (7-18); eGFR NON AFRICAN AMERICAN 85 mL/min (90-120)
[2020-02-17 09:25] VITALS: BP 146/86
[2020-02-17 13:10] LABS: HCG URINE NEGATIVE (NEGATIVE)
[2020-02-17 13:15] VITALS: BP 156/80
[2020-02-17 13:25] LABS: NITRITE NEGATIVE (NEGATIVE); SPECIFIC GRAVITY 1.015 (1.005-1.020)
[2020-02-17 13:26] LABS: BACTERIA FEW /hpf (NEGATIVE); BILIRUBIN NEGATIVE (NEGATIVE); GLUCOSE 100 mg/dL (NEGATIVE); KETONE NEGATIVE (NEGATIVE); RED CELLS - URINE 0-5 /hpf (0-5); UROBILINOGEN NORMAL (NORMAL); WHITE CELLS - URINE 0-5 /hpf (NEGATIVE)
[2020-02-17 17:26] VITALS: BP 172/93
[2020-02-17 20:00] VITALS: BP 158/83
--- NOTE | 2020-02-17 22:10 | NUR ---
PATIENT C/O OF GENERALIZED PAIN. PRN NORCO ADMINISTERED PER ORDERS.
[2020-02-18] VITALS: BP 151/84
--- NOTE | 2020-02-18 03:18 | NUR ---
PATIENT STATING SHE'S SHAKING AND THINKS HER TEMP IS RISING. PATIENT TEMP 99.9 RECTALLY. O2 SAT 87 ON ROOM AIR. PATIENT HOB RAISED 2L O2 APPLIED
--- NOTE | 2020-02-18 03:21 | NUR ---
RESPIRATORY AT BEDSIDE TO ADMINISTER PRN BREATHING TX. PATIENT COUGHING UP PINK TINGED MUCUS.
--- NOTE | 2020-02-18 03:42 | NUR ---
PATIENT O2 89% ON 4L VIA NC. STILL SHAKING AND C/O BEING HOT AND NOT ABLE TO BREATH. RESPIRATORY PLACE PATIENT ON 6L HFNC. PATIENT O2 NOW 96%
--- NOTE | 2020-02-18 03:53 | NUR ---
PATIENT TEMP 100.9 RECTALLY
--- NOTE | 2020-02-18 03:58 | NUR ---
TYLENOL SUPPOSITORY ADMINISTERED.
[2020-02-18 04:00] VITALS: BP 173/80
--- NOTE | 2020-02-18 04:38 | NUR ---
PATIENT TEMP 102.2 RECTALLY, COOL WASH CLOTH GIVEN. FAN ON.
--- NOTE | 2020-02-18 04:57 | NUR ---
STAT BLOOD CULTURES ORDERED PER STANDING ORDER
--- NOTE | 2020-02-18 05:10 | NUR ---
SPOKE WITH AURELIA HERBERT, COMPUTER SCIENCES PROFESSOR ORDERS RECEIEVED FOR PULMONOLOGY CONSULT AND STAT CHEST XRAY
[2020-02-18 06:52] LABS: ANION GAP 9.3 mmol/L (8-16); CALCIUM 7.6 mg/dL (8.5-10.1); CARBON DIOXIDE 26.3 mmol/L (21.0-32.0); CREATININE - SERUM 0.9 mg/dL (0.6-1.3); POTASSIUM - SERUM 3.6 mmol/L (3.5-5.1)
[2020-02-18 07:02] LABS: BASOPHILS 0.3 % (0-2); EOSINOPHILS 0.7 % (0-7); HEMATOCRIT 28.3 % (36.0-48.0); HEMOGLOBIN 8.9 g/dL (12-16); IMMATURE GRANULOCYTES 0.3 % (0-5); LYMPHOCYTES 10.2 % (15-50); MCH 25.9 pg (26.0-34.0); MCHC 31.4 g/dL (31.0-37.0); MCV 82.3 fL (80.0-100.0); MEAN PLATELET VOLUME 10.6 fL (7.4-10.4); MONOCYTES 6.4 % (2-11); NEUTROPHILS 82.1 % (40-80); RBC 3.44 10x6/uL (4.00-5.40); RDW 15.9 % (11.5-14.5); WBC 6.9 10x3/uL (4.8-10.8)
[2020-02-18 07:07] LABS: PLATELET COUNT 126 10x3/uL (130-400)
--- NOTE | 2020-02-18 08:14 | MORECARE ---
CASE MANAGEMENT DISCHARGE SUMMARY PATIENT: MOIZ MALONE UNIT: [id number] ADM DATE: 02/08/20 AGE: 39 : 84 SEX: F ROOM/BED: D.9005 AUTHOR: GEOVANNA,DOC PHYSICIAN: REFERRING PHYSICIAN: MARGARITA ABEBE MD DATE OF SERVICE: 02/18/20 Discharge Plan Patient Name: MOIZ MALONE Facility: [facility]:[place] : 1980 Planned Disposition: Home with Home Health Anticipated Discharge Date: Discharge Date: Expected LOS: Initial Reviewer: [email or web address] Initial Review Date: 02/08/2020 Generated: 02/18/20 9:13 am Comments DCP- Discharge Planning Updated by [email or web address]: Regi Myrick on 02/18/20 7:[address] Patient Name: MOIZ MALONE Encounter No: [id number] : 1980 Primary Insurance: [employer] PRIVATE OPTIONS TRE Anticipated DC Date: Planned Disposition: Home with Home Health External Planned Provider: : DCP follow-up note: CM received call from [facility] stating they do not accept pts insurance. CM attempted to call pt in room several times to update. CM scott continue finding alternate companies for . Case management will follow and assist as needed. Regi Myrick MSN,RN,CM DCP- Discharge Planning Updated by [email or web address]: Regi Myrick on 02/12/20 12:[address] Patient Name: MOIZ MALONE Admission Status: ER Accout number: [id number] Admission Date: 02-08-2020 : 1980 Admission Diagnosis:FEVER, UNSPECIFIED Attending: MARGARITA ABEBE Current LOS: 4 Anticipated DC Date: Planned Disposition: Home with Home Health Primary Insurance: [employer] [place] PRIVATE OPTIONS TRE Late Entry: Assessment completed at 1517 02/11/20 Discharge Planning Comments: CM met with patient to complete initial dc planning assessment. CM educated patient on the CM role and verbal consent given by patient to complete assessment. CM verified patient's address, phone number, and emergency contact phone numbers. Patient lives at with home with her (Darcy) [phone], but is . At discharge patient plans to move in with her mother in [place]. That address is [address] [place] [address]. [place] [address]. CM discussed the anticipated need for HH and infusion services. NELY signed to initiate [facility], and [facility]. CM will fax referral. Transportation provider at discharge will be her mother, with her as a backup . CM will continue to follow and will assist as needed with dc plans/needs. Press Tender Incendiary Grenade: Regi Myrick MSN,RN,CM DCPIA - Discharge Planning Initial Assessment Updated by [email or web address]: Regi Myrick on 02/12/20 7:52 am * Is the patient Alert and Oriented? Yes * How many steps to enter\exit or inside your home? 0/0 * PCP Dr Pate * Pharmacy [facility] * Preadmission Environment Home Alone * ADLs Independent * Equipment None * List name and contact numbers for known caregivers / representatives who currently or will assist patient after discharge: Marissa (mother) [phone] Sj ( as a backup) they are [phone] * Verbal permission to speak to the caregivers and representatives has been obtained from the patient. Yes * Community resources currently utilized None * Additional services required to return to the preadmission environment? Yes * Can the patient safely return to the preadmission environment? Yes * Has this patient been hospitalized within the prior 30 days at any hospital? No External Providers External Provider: [facility] [place] Next Contact Date: Service Request Date: Service Type: Resolution: Reviewer: Comments: Coverage Notice Reviewer: [id number] - Regi Myrick Notice Issued Date-Time: 02/11/2020 15:17 Notice Type: Patient Choice Letter Notice Delivered To: Patient Relationship to Patient: Construction Analyst Name: Delivery Method: PHONE - Phone Marcia Days: Prior Verbal Notification: Recipient Understood Notice: Yes Recipient Signature: Yes Med Rec Note Co-signed by Attending: Coverage Notice Comment: Last DP export: 02/12/20 1:33 p Patient Name: MOIZ MALONE Page 50469 at 0814 All edits/amendments must be made on the electronic document DICTATION DATE: 02/18/20812 MANAGER TRAINING: LAKISHA 02/18/20812 RPT#: [id number] DC DATE: STATUS: ADM IN [facility] [address] [place] [address] END OF REPORT
--- NOTE | 2020-02-18 08:20 | MORECARE ---
CASE MANAGEMENT DISCHARGE SUMMARY PATIENT: MOIZ MALONE UNIT: [id number] ADM DATE: 02/08/20 AGE: 39 : 84 SEX: F ROOM/BED: D.8985 AUTHOR: GEOVANNA,DOC PHYSICIAN: REFERRING PHYSICIAN: MARGARITA ABEBE MD DATE OF SERVICE: 02/18/20 Discharge Plan Patient Name: MOIZ MALONE Facility: [facility]:[place] : 1980 Planned Disposition: Home with Home Health Anticipated Discharge Date: Discharge Date: Expected LOS: Initial Reviewer: [email or web address] Initial Review Date: 02/08/2020 Generated: 02/18/20 9:20 am Comments DCP- Discharge Planning Updated by [email or web address]: Regi Myrick on 02/18/20 7:[address] Patient Name: MOIZ MALONE Admission Status: ER Accout number: [id number] Admission Date: 02-08-2020 : 1980 Admission Diagnosis:FEVER, UNSPECIFIED Attending: MARGARITA ABEBE Current LOS: 4 Anticipated DC Date: Planned Disposition: Home with Home Health Primary Insurance: [facility] PRIVATE OPTIONS TRE Late Entry: Assessment completed at 1517 02/11/20 Discharge Planning Comments: CM met with patient to complete initial dc planning assessment. CM educated patient on the CM role and verbal consent given by patient to complete assessment. CM verified patient's address, phone number, and emergency contact phone numbers. Patient lives at with home with her (Darcy) [phone], but is . At discharge patient plans to move in with her mother in [place]. That address is [address] [place] [address]. CM discussed the anticipated need for HH and infusion services. NELY signed to initiate [facility], and [facility] services. CM will fax referral. Transportation provider at discharge will be her mother, with her as a backup . CM will continue to follow and will assist as needed with dc plans/needs. Multimedia Services Manager: Regi Myrick MSN,RN,CM DCP- Discharge Planning Updated by [email or web address]: Regi Myrick on 02/18/20 7:[address] Patient Name: MOIZ MALONE Encounter No: [id number] : 1980 Primary Insurance: [employer] [place] PRIVATE OPTIONS TRE Anticipated DC Date: Planned Disposition: Home with Home Health External Planned Provider: : DCP follow-up note: CM received call from [facility] stating they do not accept pts insurance. CM attempted to call pt in room several times to update. CM scott continue finding alternate companies for . Case management will follow and assist as needed. Regi Myrick MSN,RN,CM DCPIA - Discharge Planning Initial Assessment Updated by [email or web address]: Regi Myrick on 02/12/20 7:52 am * Is the patient Alert and Oriented? Yes * How many steps to enter\exit or inside your home? 0/0 * PCP Dr Pate * Pharmacy [facility] * Preadmission Environment Home Alone * ADLs Independent * Equipment None * List name and contact numbers for known caregivers / representatives who currently or will assist patient after discharge: Marissa (mother) [phone] Sj ( as a backup) they are [phone] * Verbal permission to speak to the caregivers and representatives has been obtained from the patient. Yes * Community resources currently utilized None * Additional services required to return to the preadmission environment? Yes * Can the patient safely return to the preadmission environment? Yes * Has this patient been hospitalized within the prior 30 days at any hospital? No Coverage Notice Reviewer: [id number] - Regi Myrick Notice Issued Date-Time: 02/11/2020 15:17 Notice Type: Patient Choice Letter Notice Delivered To: Patient Relationship to Patient: Sugar Laboratory Assistant Name: Delivery Method: PHONE - Phone Marcia Days: Prior Verbal Notification: Recipient Understood Notice: Yes Recipient Signature: Yes Med Rec Note Co-signed by Attending: Coverage Notice Comment: Last DP export: 02/18/20 7:14 a Patient Name: MOIZ MALONE Page 69014 at 0820 All edits/amendments must be made on the electronic document DICTATION DATE: 02/18/20819 ECOTHERAPIST: LAKISHA 02/18/20819 RPT#: [id number] DC DATE: STATUS: ADM IN [facility] [address] [facility] [place] [address] END OF REPORT
[2020-02-18 08:25] VITALS: BP 135/76
--- NOTE | 2020-02-18 08:27 | MORECARE ---
CASE MANAGEMENT DISCHARGE SUMMARY PATIENT: MOIZ MALONE UNIT: [id number] ADM DATE: 02/08/20 AGE: 39 : [birth year] SEX: F ROOM/BED: D.7481 AUTHOR: GEOVANNA,DOC PHYSICIAN: REFERRING PHYSICIAN: MARGARITA ABEBE MD DATE OF SERVICE: 02/18/20 Discharge Plan Patient Name: MOIZ MALONE Facility: [facility]:[place] : 1980 Planned Disposition: Home with Home Health Anticipated Discharge Date: Discharge Date: Expected LOS: Initial Reviewer: [id number] Initial Review Date: 02/08/2020 Generated: 02/18/20 9:26 am Comments DCP- Discharge Planning Updated by [email or web address]: Regi Myrick on 02/18/20 7:[address] Patient Name: MOIZ MALONE Encounter No: [id number] : 1980 Primary Insurance: [employer] PRIVATE OPTIONS TRE Anticipated DC Date: Planned Disposition: Home with Home Health External Planned Provider: : DCP follow-up note: CM received call from [facility] stating they do not accept [facility] insurance. CM attempted to call pt in room several times to update. CM scott continue finding alternate companies for . CM called Moiz at [facility] [phone] and faxed referral to [phone]. Case management will follow and assist as needed. Regi Myrick MSN,RN,CM DCP- Discharge Planning Updated by [email or web address]: Regi Myrick on 02/18/20 7:[address] Patient Name: MOIZ MALONE Admission Status: ER Accout number: [id number] Admission Date: 02-08-2020 : 1980 Admission Diagnosis:FEVER, UNSPECIFIED Attending: MARGARITA ABEBE Current LOS: 4 Anticipated DC Date: Planned Disposition: Home with Home Health Primary Insurance: [employer] PRIVATE OPTIONS TRE Late Entry: Assessment completed at 1517 02/11/20 Discharge Planning Comments: CM met with patient to complete initial dc planning assessment. CM educated patient on the CM role and verbal consent given by patient to complete assessment. CM verified patient's address, phone number, and emergency contact phone numbers. Patient lives at with home with her (Darcy) [phone], but is . At discharge patient plans to move in with her mother in [place]. That address is [address] [place] [address]. CM discussed the anticipated need for HH and infusion services. NELY signed to initiate [facility], and [facility] services. CM will fax referral. Transportation provider at discharge will be her mother, with her as a backup . CM will continue to follow and will assist as needed with dc plans/needs. Multicultural Manager: Regi Myrick MSN,RN,CM DCPIA - Discharge Planning Initial Assessment Updated by [email or web address]: Reig Myrick on 02/12/20 7:52 am * Is the patient Alert and Oriented? Yes * How many steps to enter\exit or inside your home? 0/0 * PCP Dr Pate * Pharmacy [facility] * Preadmission Environment Home Alone * ADLs Independent * Equipment None * List name and contact numbers for known caregivers / representatives who currently or will assist patient after discharge: Marissa (mother) [phone] Sj ( as a backup) they are [phone] * Verbal permission to speak to the caregivers and representatives has been obtained from the patient. Yes * Community resources currently utilized None * Additional services required to return to the preadmission environment? Yes * Can the patient safely return to the preadmission environment? Yes * Has this patient been hospitalized within the prior 30 days at any hospital? No Coverage Notice Reviewer: [id number] - Regi Myrick Notice Issued Date-Time: 02/11/2020 15:17 Notice Type: Patient Choice Letter Notice Delivered To: Patient Relationship to Patient: Production Control Clerk Name: Delivery Method: PHONE - Phone Marcia Days: Prior Verbal Notification: Recipient Understood Notice: Yes Recipient Signature: Yes Med Rec Note Co-signed by Attending: Coverage Notice Comment: Last DP export: 02/18/20 7:20 a Patient Name: MOIZ MALONE Page 44401 at 0827 All edits/amendments must be made on the electronic document DICTATION DATE: 02/18/20825 DRY CLIPPER TENDER: DM 02/18/20825 RPT#: [id number] DC DATE: STATUS: ADM IN [facility] [address] [place] [address] END OF REPORT
--- NOTE | 2020-02-18 08:53 | MORECARE ---
CASE MANAGEMENT DISCHARGE SUMMARY PATIENT: MOIZ MALONE UNIT: [id number] ADM DATE: 02/08/20 AGE: 39 : 84 SEX: F ROOM/BED: D.3859 AUTHOR: GEOVANNA,DOC PHYSICIAN: REFERRING PHYSICIAN: MARGARITA ABEBE MD DATE OF SERVICE: 02/18/20 Discharge Plan Patient Name: MOIZ MALONE Facility: [facility]:[place] : 1980 Planned Disposition: Home with Home Health Anticipated Discharge Date: Discharge Date: Expected LOS: Initial Reviewer: [email or web address] Initial Review Date: 02/08/2020 Generated: 02/18/20 9:52 am Comments DCP- Discharge Planning Updated by [email or web address]: Regi Myrick on 02/18/20 7:[address] Patient Name: MOIZ MALONE Encounter No: [id number] : 1980 Primary Insurance: [employer] PRIVATE OPTIONS TRE Anticipated DC Date: Planned Disposition: Home with Home Health External Planned Provider: : DCP follow-up note: CM received call from [facility] stating they do not accept [facility] insurance. CM attempted to call pt in room several times to update. CM scott continue finding alternate companies for . CM called Moiz at [facility] [phone] and faxed referral to [phone]. Case management will follow and assist as needed. Regi Myrick MSN,RN,CM DCP- Discharge Planning Updated by [id number]: Regi Myrick on 02/18/20 7:[address] Patient Name: MOIZ MALONE Admission Status: ER Accout number: [id number] Admission Date: 02-08-2020 : 1980 Admission Diagnosis:FEVER, UNSPECIFIED Attending: MARGARITA ABEBE Current LOS: 4 Anticipated DC Date: Planned Disposition: Home with Home Health Primary Insurance: [employer] PRIVATE OPTIONS TRE Late Entry: Assessment completed at 1517 02/11/20 Discharge Planning Comments: CM met with patient to complete initial dc planning assessment. CM educated patient on the CM role and verbal consent given by patient to complete assessment. CM verified patient's address, phone number, and emergency contact phone numbers. Patient lives at with home with her (Darcy) [phone], but is . At discharge patient plans to move in with her mother in [place]. That address is [address] [place] [address]. CM discussed the anticipated need for HH and infusion services. NELY signed to initiate [facility], and [facility]. CM will fax referral. Transportation provider at discharge will be her mother, with her as a backup . CM will continue to follow and will assist as needed with dc plans/needs. Pv Design And Installation Technician: Regi Myrick MSN,RN,CM DCPIA - Discharge Planning Initial Assessment Updated by [id number]: Regi Myrick on 02/12/20 7:52 am * Is the patient Alert and Oriented? Yes * How many steps to enter\exit or inside your home? 0/0 * PCP Dr Pate * Pharmacy [facility] * Preadmission Environment Home Alone * ADLs Independent * Equipment None * List name and contact numbers for known caregivers / representatives who currently or will assist patient after discharge: Marissa (mother) [phone] Sj ( as a backup) they are [phone] * Verbal permission to speak to the caregivers and representatives has been obtained from the patient. Yes * Community resources currently utilized None * Additional services required to return to the preadmission environment? Yes * Can the patient safely return to the preadmission environment? Yes * Has this patient been hospitalized within the prior 30 days at any hospital? No External Providers External Provider: OTHER-OTHER Next Contact Date: Service Request Date: Service Type: Resolution: Reviewer: Comments: Coverage Notice Reviewer: [id number] - Regi Myrick Notice Issued Date-Time: 02/11/2020 15:17 Notice Type: Patient Choice Letter Notice Delivered To: Patient Relationship to Patient: Biofuels Operations Manager Name: Delivery Method: PHONE - Phone Marcia Days: Prior Verbal Notification: Recipient Understood Notice: Yes Recipient Signature: Yes Med Rec Note Co-signed by Attending: Coverage Notice Comment: Last DP export: 02/18/20 7:27 a Patient Name: MOIZ MALONE Page 54388 at 0853 All edits/amendments must be made on the electronic document DICTATION DATE: 02/18/20851 FINISHER FIBERGLASS BOAT PARTS: LAKISHA 02/18/20851 RPT#: [id number] DC DATE: STATUS: ADM IN [facility] [address] [place] [address] END OF REPORT
--- NOTE | 2020-02-18 08:59 | MORECARE ---
CASE MANAGEMENT DISCHARGE SUMMARY PATIENT: MOIZ MALONE UNIT: [id number] ADM DATE: 02/08/20 AGE: 39 : [birth year] SEX: F ROOM/BED: D.7176 AUTHOR: GEOVANNA,DOC PHYSICIAN: REFERRING PHYSICIAN: MARGARITA ABEBE MD DATE OF SERVICE: 02/18/20 Discharge Plan Patient Name: MOIZ MALONE Facility: [facility]:[place] : 1980 Planned Disposition: Home with Home Health Anticipated Discharge Date: Discharge Date: Expected LOS: Initial Reviewer: [email or web address] Initial Review Date: 02/08/2020 Generated: 02/18/20 9:59 am Comments DCP- Discharge Planning Updated by [email or web address]: Regi Myrick on 02/18/20 7:[address] Patient Name: MOIZ MALONE Encounter No: [id number] : 1980 Primary Insurance: [employer] PRIVATE OPTIONS TRE Anticipated DC Date: Planned Disposition: Home with Home Health External Planned Provider: : DCP follow-up note: CM received call from [facility] stating they do not accept [facility] insurance. CM attempted to call pt in room several times to update. CM scott continue finding alternate companies for . CM called Moiz at [facility] [phone] and faxed referral to [phone]. Case management will follow and assist as needed. Regi Myrick MSN,RN,CM DCP- Discharge Planning Updated by [id number]: Regi Myrick on 02/18/20 7:[address] Patient Name: MOIZ MALONE Admission Status: ER Accout number: [id number] Admission Date: 02-08-2020 : 1980 Admission Diagnosis:FEVER, UNSPECIFIED Attending: MARGARITA ABEBE Current LOS: 4 Anticipated DC Date: Planned Disposition: Home with Home Health Primary Insurance: [employer] PRIVATE OPTIONS TRE Late Entry: Assessment completed at 1517 02/11/20 Discharge Planning Comments: CM met with patient to complete initial dc planning assessment. CM educated patient on the CM role and verbal consent given by patient to complete assessment. CM verified patient's address, phone number, and emergency contact phone numbers. Patient lives at with home with her (Darcy) [phone], but is . At discharge patient plans to move in with her mother in [place]. That address is [address] [place] [address]. CM discussed the anticipated need for HH and infusion services. NELY signed to initiate [facility], and [facility]. CM will fax referral. Transportation provider at discharge will be her mother, with her as a backup . CM will continue to follow and will assist as needed with dc plans/needs. Repairer Sash And Door: Regi Myrick MSN,RN,CM DCPIA - Discharge Planning Initial Assessment Updated by [id number]: Regi Myrick on 02/12/20 7:52 am * Is the patient Alert and Oriented? Yes * How many steps to enter\exit or inside your home? 0/0 * PCP Dr Pate * Pharmacy [facility] * Preadmission Environment Home Alone * ADLs Independent * Equipment None * List name and contact numbers for known caregivers / representatives who currently or will assist patient after discharge: Marissa (mother) [phone] Sj ( as a backup) they are [phone] * Verbal permission to speak to the caregivers and representatives has been obtained from the patient. Yes * Community resources currently utilized None * Additional services required to return to the preadmission environment? Yes * Can the patient safely return to the preadmission environment? Yes * Has this patient been hospitalized within the prior 30 days at any hospital? No External Providers External Provider: [facility] Next Contact Date: Service Request Date: Service Type: Resolution: Reviewer: Comments: Coverage Notice Reviewer: [id number] - Regi Myrick Notice Issued Date-Time: 02/11/2020 15:17 Notice Type: Patient Choice Letter Notice Delivered To: Patient Relationship to Patient: Security Guard Name: Delivery Method: PHONE - Phone Marcia Days: Prior Verbal Notification: Recipient Understood Notice: Yes Recipient Signature: Yes Med Rec Note Co-signed by Attending: Coverage Notice Comment: Last DP export: 02/18/20 7:52 a Patient Name: MOIZ MALONE Page 97575 at 0859 All edits/amendments must be made on the electronic document DICTATION DATE: 02/18/20858 FURNACE TAPPER: LAKISHA 02/18/20858 RPT#: [id number] DC DATE: STATUS: ADM IN [facility] [address] [place] [address] END OF REPORT
[2020-02-18 13:05] VITALS: BP 156/81
[2020-02-18 15:38] VITALS: BP 164/89
--- NOTE | 2020-02-18 16:07 | MORECARE ---
CASE MANAGEMENT DISCHARGE SUMMARY PATIENT: MOIZ MALONE UNIT: [id number] ADM DATE: 02/08/20 AGE: 39 : 84 SEX: F ROOM/BED: D.4049 AUTHOR: GEOVANNA,DOC PHYSICIAN: REFERRING PHYSICIAN: MARGARITA ABEBE MD DATE OF SERVICE: 02/18/20 Discharge Plan Patient Name: MOIZ MALONE Facility: [facility]:[place] : 1980 Planned Disposition: Home with Home Health Anticipated Discharge Date: Discharge Date: Expected LOS: Initial Reviewer: [id number] Initial Review Date: 02/08/2020 Generated: 02/18/20 5:06 pm Comments DCP- Discharge Planning Updated by [id number]: Regi Myrick on 02/18/20 7:[address] Patient Name: MOIZ MALONE Encounter No: [id number] : 1980 Primary Insurance: [employer] PRIVATE OPTIONS TRE Anticipated DC Date: Planned Disposition: Home with Home Health External Planned Provider: : DCP follow-up note: CM received call from [facility] stating they do not accept [facility] insurance. CM attempted to call pt in room several times to update. CM scott continue finding alternate companies for . CM called Moiz at [facility] [phone] and faxed referral to [phone]. Case management will follow and assist as needed. Regi Myrick MSN,RN,CM DCP- Discharge Planning Updated by [email or web address]: Regi Myrick on 02/18/20 7:[address] Patient Name: MOIZ MALONE Admission Status: ER Accout number: [id number] Admission Date: 02-08-2020 : 1980 Admission Diagnosis:FEVER, UNSPECIFIED Attending: MARGARITA ABEBE Current LOS: 4 Anticipated DC Date: Planned Disposition: Home with Home Health Primary Insurance: [employer] PRIVATE OPTIONS TRE Late Entry: Assessment completed at 1517 02/11/20 Discharge Planning Comments: CM met with patient to complete initial dc planning assessment. CM educated patient on the CM role and verbal consent given by patient to complete assessment. CM verified patient's address, phone number, and emergency contact phone numbers. Patient lives at with home with her (Darcy) [phone], but is . At discharge patient plans to move in with her mother in [place]. That address is [address] [place] [address]. CM discussed the anticipated need for HH and infusion services. NELY signed to initiate [facility], and [facility]. CM will fax referral. Transportation provider at discharge will be her mother, with her as a backup . CM will continue to follow and will assist as needed with dc plans/needs. Scraper Meat: Regi Myrick MSN,RN,CM DCPIA - Discharge Planning Initial Assessment Updated by [id number]: Regi Myrick on 02/12/20 7:52 am * Is the patient Alert and Oriented? Yes * How many steps to enter\exit or inside your home? 0/0 * PCP Dr Pate * [facility] * Preadmission Environment Home Alone * ADLs Independent * Equipment None * List name and contact numbers for known caregivers / representatives who currently or will assist patient after discharge: Marissa (mother) [phone] Sj ( as a backup) they are [phone] * Verbal permission to speak to the caregivers and representatives has been obtained from the patient. Yes * Community resources currently utilized None * Additional services required to return to the preadmission environment? Yes * Can the patient safely return to the preadmission environment? Yes * Has this patient been hospitalized within the prior 30 days at any hospital? No Coverage Notice Reviewer: [id number] - Regi Myrick Notice Issued Date-Time: 02/11/2020 15:17 Notice Type: Patient Choice Letter Notice Delivered To: Patient Relationship to Patient: Hand Straightener Name: Delivery Method: PHONE - Phone Marcia Days: Prior Verbal Notification: Recipient Understood Notice: Yes Recipient Signature: Yes Med Rec Note Co-signed by Attending: Coverage Notice Comment: Last DP export: 02/18/20 7:59 a Patient Name: MOIZ MALONE Page 04137 at 1607 All edits/amendments must be made on the electronic document DICTATION DATE: 02/18/201605 VEHICLE DYNAMICS ENGINEER: DM 02/18/201605 RPT#: [id number] DC DATE: STATUS: ADM IN [facility] [address] [place] [address] END OF REPORT
--- NOTE | 2020-02-18 19:28 | NUR ---
REPORT RECEIVED, WILL CONTINUE POC. PATIENT IS AAOX4, LYING IN SEMI-FOWLERS POSITION. NO S/S OF DISTRESS OBSERVED, RR EVEN AND UNLABORED ON ROOM AIR. PIV TO LT WRIST INFUSING ZOFRAN @ 4.7ML/HR. PATIENT DENIES NEEDS AT THIS TIME. CL IN REACH, BED LOCKED AND LOWERED. WILL CTM.
[2020-02-18 20:00] VITALS: BP 149/74
--- NOTE | 2020-02-18 21:50 | NUR ---
ADMINISTERED HS MEDS, FSBS 237 COVERED PER SS. GAVE PATIENT INCENTIVE SPIROMETER AND RESPIRATORY GAVE FLUTTER VALVE WHICH HE EDUCATED PATIENT ON HOW WHEN TO USE BOTH DEVICES. PATIENT STATES UNDERSTANDING. PATIENT DENIES FURTHER NEEDS AT THIS TIME.
--- NOTE | 2020-02-18 23:02 | NUR ---
PIV TO LT FA INFILTRATED WHEN IV ABX WERE BEING ADMINISTERED. NEW PIV TO RT HAND WITH 22G X4 ATTEMPTS. PATIENT TOLERATED WELL. IV ABX RESUMED.
[2020-02-19] VITALS: BP 124/68
--- NOTE | 2020-02-19 01:41 | NUR ---
I have reviewed this patient and I concur with the Shift Assessment completed by the Licensed Practical Nurse today this shift.
[2020-02-19 04:00] VITALS: BP 128/73
[2020-02-19 06:05] LABS: % SATURATION 23 % (15-55); IRON 49 ug/dl (35-150); TOTAL IRON BIND CAPACITY 207 ug/dl (260-445); UNSAT IRON BIND CAPACITY 158 ug/dl (150-375)
[2020-02-19 06:25] LABS: FERRITIN 193 ng/mL (3-244)
--- NOTE | 2020-02-19 06:31 | NUR ---
PATIENT DOESN'T WANT FSBS UNTIL RIGHT BEFORE HER BREAKFAST TRAY GETS HERE.
--- NOTE | 2020-02-19 08:27 | MORECARE ---
CASE MANAGEMENT DISCHARGE SUMMARY PATIENT: MOIZ MALONE UNIT: [id number] ADM DATE: 02/08/20 AGE: 39 : [birth year] SEX: F ROOM/BED: D.4206 AUTHOR: GEOVANNA,DOC PHYSICIAN: REFERRING PHYSICIAN: MARGARITA ABEBE MD DATE OF SERVICE: 02/19/20 Discharge Plan Patient Name: MOIZ MALONE Facility: [facility]:[place] : 1980 Planned Disposition: Home with Home Health Anticipated Discharge Date: Discharge Date: Expected LOS: Initial Reviewer: [email or web address] Initial Review Date: 02/08/2020 Generated: 02/19/20 9:27 am Comments DCP- Discharge Planning Updated by [id number]: Regi Myrick on 02/18/20 7:[address] Patient Name: MOIZ MALONE Encounter No: [id number] : 1980 Primary Insurance: [employer] PRIVATE OPTIONS TRE Anticipated DC Date: Planned Disposition: Home with Home Health External Planned Provider: : DCP follow-up note: CM received call from [facility] stating they do not accept [facility] insurance. CM attempted to call pt in room several times to update. CM scott continue finding alternate companies for . CM called Moiz at [facility] [phone] and faxed referral to [phone]. Case management will follow and assist as needed. Regi Myrick MSN,RN,CM DCP- Discharge Planning Updated by [email or web address]: Regi Myrick on 02/18/20 7:[address] Patient Name: MOIZ MALONE Admission Status: ER Accout number: [id number] Admission Date: 02-08-2020 : 1980 Admission Diagnosis:FEVER, UNSPECIFIED Attending: MARGARITA ABEBE Current LOS: 4 Anticipated DC Date: Planned Disposition: Home with Home Health Primary Insurance: [employer] PRIVATE OPTIONS TRE Late Entry: Assessment completed at 1517 02/11/20 Discharge Planning Comments: CM met with patient to complete initial dc planning assessment. CM educated patient on the CM role and verbal consent given by patient to complete assessment. CM verified patient's address, phone number, and emergency contact phone numbers. Patient lives at with home with her (Darcy) [phone], but is . At discharge patient plans to move in with her mother in [place]. That address is [address] [place] [address]. CM discussed the anticipated need for HH and infusion services. NELY signed to initiate [facility], and [facility] services. CM will fax referral. Transportation provider at discharge will be her mother, with her as a backup . CM will continue to follow and will assist as needed with dc plans/needs. Die Welder: Regi Myrick MSN,RN,CM DCPIA - Discharge Planning Initial Assessment Updated by [email or web address]: Regi Myrick on 02/12/20 7:52 am * Is the patient Alert and Oriented? Yes * How many steps to enter\exit or inside your home? 0/0 * PCP Dr Pate * [facility] * Preadmission Environment Home Alone * ADLs Independent * Equipment None * List name and contact numbers for known caregivers / representatives who currently or will assist patient after discharge: Marissa (mother) [phone] Sj ( as a backup) they are [phone] * Verbal permission to speak to the caregivers and representatives has been obtained from the patient. Yes * Community resources currently utilized None * Additional services required to return to the preadmission environment? Yes * Can the patient safely return to the preadmission environment? Yes * Has this patient been hospitalized within the prior 30 days at any hospital? No External Providers External Provider: [facility] [place] [facility] Next Contact Date: Service Request Date: Service Type: Resolution: Reviewer: Comments: Coverage Notice Reviewer: [id number] - Regi Myrick Notice Issued Date-Time: 02/11/2020 15:17 Notice Type: Patient Choice Letter Notice Delivered To: Patient Relationship to Patient: Blood Bank Manager Name: Delivery Method: PHONE - Phone Marcia Days: Prior Verbal Notification: Recipient Understood Notice: Yes Recipient Signature: Yes Med Rec Note Co-signed by Attending: Coverage Notice Comment: Last DP export: 02/18/20 3:07 p Patient Name: MOIZ MALONE Page 55601 at 0827 All edits/amendments must be made on the electronic document DICTATION DATE: 02/19/20826 HEDIS REGISTERED NURSE RN: LAKISHA 02/19/20826 RPT#: [id number] DC DATE: STATUS: ADM IN [facility] [address] [facility] [place] [address] END OF REPORT
[2020-02-19 08:42] VITALS: BP 182/89
--- NOTE | 2020-02-19 08:49 | MORECARE ---
CASE MANAGEMENT DISCHARGE SUMMARY PATIENT: MOIZ MALONE UNIT: [id number] ADM DATE: 02/08/20 AGE: 39 : 84 SEX: F ROOM/BED: D.3031 AUTHOR: GEOVANNA,DOC PHYSICIAN: REFERRING PHYSICIAN: MARGARITA ABEBE MD DATE OF SERVICE: 02/19/20 Discharge Plan Patient Name: MOIZ MALONE Facility: [facility]:[place] : 1980 Planned Disposition: Home with Home Health Anticipated Discharge Date: Discharge Date: Expected LOS: Initial Reviewer: [id number] Initial Review Date: 02/08/2020 Generated: 02/19/20 9:49 am Comments DCP- Discharge Planning Updated by [email or web address]: Regi Myrick on 02/18/20 7:[address] Patient Name: MOIZ MALONE Encounter No: [id number] : 1980 Primary Insurance: [employer] PRIVATE OPTIONS TRE Anticipated DC Date: Planned Disposition: Home with Home Health External Planned Provider: : DCP follow-up note: CM received call from [facility] stating they do not accept [facility] insurance. CM attempted to call pt in room several times to update. CM scott continue finding alternate companies for . CM called Moiz at [facility] [phone] and faxed referral to [phone]. Case management will follow and assist as needed. Regi Myrick MSN,RN,CM DCP- Discharge Planning Updated by [email or web address]: Regi Myrick on 02/18/20 7:[address] Patient Name: MOIZ MALONE Admission Status: ER Accout number: [id number] Admission Date: 02-08-2020 : 1980 Admission Diagnosis:FEVER, UNSPECIFIED Attending: MARGARITA ABEBE Current LOS: 4 Anticipated DC Date: Planned Disposition: Home with Home Health Primary Insurance: [employer] PRIVATE OPTIONS TRE Late Entry: Assessment completed at 1517 02/11/20 Discharge Planning Comments: CM met with patient to complete initial dc planning assessment. CM educated patient on the CM role and verbal consent given by patient to complete assessment. CM verified patient's address, phone number, and emergency contact phone numbers. Patient lives at with home with her (Darcy) [phone], but is . At discharge patient plans to move in with her mother in [place]. That address is [address] [place] [address]. CM discussed the anticipated need for HH and infusion services. NELY signed to initiate [facility], and [facility] services. CM will fax referral. Transportation provider at discharge will be her mother, with her as a backup . CM will continue to follow and will assist as needed with dc plans/needs. Nurse General Duty: Regi Myrick MSN,RN,CM DCPIA - Discharge Planning Initial Assessment Updated by [email or web address]: Regi Myrick on 02/12/20 7:52 am * Is the patient Alert and Oriented? Yes * How many steps to enter\exit or inside your home? 0/0 * PCP Dr Pate * [facility] * Preadmission Environment Home Alone * ADLs Independent * Equipment None * List name and contact numbers for known caregivers / representatives who currently or will assist patient after discharge: Marissa (mother) [phone] Sj ( as a backup) they are [phone] * Verbal permission to speak to the caregivers and representatives has been obtained from the patient. Yes * Community resources currently utilized None * Additional services required to return to the preadmission environment? Yes * Can the patient safely return to the preadmission environment? Yes * Has this patient been hospitalized within the prior 30 days at any hospital? No Coverage Notice Reviewer: [id number] - Regi Myrick Notice Issued Date-Time: 02/11/2020 15:17 Notice Type: Patient Choice Letter Notice Delivered To: Patient Relationship to Patient: Aeronautical Design Engineer Name: Delivery Method: PHONE - Phone Marcia Days: Prior Verbal Notification: Recipient Understood Notice: Yes Recipient Signature: Yes Med Rec Note Co-signed by Attending: Coverage Notice Comment: Last DP export: 02/19/20 7:27 a Patient Name: MOIZ MALONE Page 85452 at 0849 All edits/amendments must be made on the electronic document DICTATION DATE: 02/19/20848 CASH POSTING CLERK: DM 02/19/2049 RPT#: [id number] DC DATE: STATUS: ADM IN [facility] [address] [place] [address] END OF REPORT
--- NOTE | 2020-02-19 09:11 | MORECARE ---
CASE MANAGEMENT DISCHARGE SUMMARY PATIENT: MOIZ MALONE UNIT: [id number] ADM DATE: 02/08/20 AGE: 39 : 84 SEX: F ROOM/BED: D.9544 AUTHOR: GEOVANNA,DOC PHYSICIAN: REFERRING PHYSICIAN: MARGARITA ABEBE MD DATE OF SERVICE: 02/19/20 Discharge Plan Patient Name: MOIZ MALONE Facility: [facility]:[place] : 1980 Planned Disposition: Home with Home Health Anticipated Discharge Date: Discharge Date: Expected LOS: Initial Reviewer: [email or web address] Initial Review Date: 02/08/2020 Generated: 02/19/20 10:10 am Comments DCP- Discharge Planning Updated by [email or web address]: Regi Myrick on 02/18/20 7:[address] Patient Name: MOIZ MALONE Encounter No: [id number] : 1980 Primary Insurance: [employer] PRIVATE OPTIONS TRE Anticipated DC Date: Planned Disposition: Home with Home Health External Planned Provider: : DCP follow-up note: CM received call from [facility] stating they do not accept [facility] insurance. CM attempted to call pt in room several times to update. CM scott continue finding alternate companies for . CM called Moiz at [facility] [phone] and faxed referral to [phone]. Case management will follow and assist as needed. Regi Myrick MSN,RN,CM DCP- Discharge Planning Updated by [email or web address]: Regi Myrick on 02/18/20 7:[address] Patient Name: MOIZ MALONE Admission Status: ER Accout number: [id number] Admission Date: 02-08-2020 : 1980 Admission Diagnosis:FEVER, UNSPECIFIED Attending: MARGARITA ABEBE Current LOS: 4 Anticipated DC Date: Planned Disposition: Home with Home Health Primary Insurance: [employer] PRIVATE OPTIONS TRE Late Entry: Assessment completed at 1517 02/11/20 Discharge Planning Comments: CM met with patient to complete initial dc planning assessment. CM educated patient on the CM role and verbal consent given by patient to complete assessment. CM verified patient's address, phone number, and emergency contact phone numbers. Patient lives at with home with her (Darcy) [phone], but is . At discharge patient plans to move in with her mother in [place]. That address is [address] [place] [address]. CM discussed the anticipated need for HH and infusion services. NELY signed to initiate [facility], and [facility] services. CM will fax referral. Transportation provider at discharge will be her mother, with her as a backup . CM will continue to follow and will assist as needed with dc plans/needs. Digitizer Operator: Regi Myrick MSN,RN,CM DCPIA - Discharge Planning Initial Assessment Updated by [email or web address]: Regi Myrick on 02/12/20 7:52 am * Is the patient Alert and Oriented? Yes * How many steps to enter\exit or inside your home? 0/0 * PCP Dr Pate * [facility] * Preadmission Environment Home Alone * ADLs Independent * Equipment None * List name and contact numbers for known caregivers / representatives who currently or will assist patient after discharge: Marissa (mother) [phone] Sj ( as a backup) they are [phone] * Verbal permission to speak to the caregivers and representatives has been obtained from the patient. Yes * Community resources currently utilized None * Additional services required to return to the preadmission environment? Yes * Can the patient safely return to the preadmission environment? Yes * Has this patient been hospitalized within the prior 30 days at any hospital? No External Providers External Provider: [facility] Next Contact Date: Service Request Date: Service Type: Resolution: Reviewer: Comments: Coverage Notice Reviewer: [id number] - Regi Myrick Notice Issued Date-Time: 02/11/2020 15:17 Notice Type: Patient Choice Letter Notice Delivered To: Patient Relationship to Patient: Him Specialists Name: Delivery Method: PHONE - Phone Marcia Days: Prior Verbal Notification: Recipient Understood Notice: Yes Recipient Signature: Yes Med Rec Note Co-signed by Attending: Coverage Notice Comment: Last DP export: 02/19/20 7:49 a Patient Name: MOIZ MALONE Page 88634 at 0911 All edits/amendments must be made on the electronic document DICTATION DATE: 02/19/20909 MOVING VAN DRIVER: LAKISHA 02/19/20909 RPT#: [id number] DC DATE: STATUS: ADM IN [facility] [address] [place] [address] END OF REPORT
--- NOTE | 2020-02-19 09:53 | NUR ---
PT'S FATHER WHO WILL BE RIDE HOME IS DRIVING IN FROM [place] TO [place] TO AND THEN HERE TO DRIVE HOME IF DISCHARGED. ARVIN CASIANO NOTIFIED, WORKING ON TRYING TO RELEASE TODAY.
[2020-02-19 12:14] LABS: BASOPHILS 0.5 % (0-2); EOSINOPHILS 1.4 % (0-7); HEMATOCRIT 27.9 % (36.0-48.0); HEMOGLOBIN 8.9 g/dL (12-16); IMMATURE GRANULOCYTES 0.5 % (0-5); LYMPHOCYTES 33.5 % (15-50); MCHC 31.9 g/dL (31.0-37.0); MEAN PLATELET VOLUME 11.1 fL (7.4-10.4); MONOCYTES 8.3 % (2-11); NEUTROPHILS 55.8 % (40-80); PLATELET COUNT 135 10x3/uL (130-400); RDW 16.3 % (11.5-14.5)
[2020-02-19 12:21] LABS: MCV 84.5 fL (80.0-100.0); WBC 4.2 10x3/uL (4.8-10.8)
[2020-02-19 12:24] LABS: CALC OSMOLALITY 283 mosm/kg (275-300); CALCIUM 7.8 mg/dL (8.5-10.1); CHLORIDE - SERUM 105 mmol/L (98-107); CREATININE - SERUM 0.8 mg/dL (0.6-1.3); GLUCOSE 188 mg/dL (74-106); POTASSIUM - SERUM 3.6 mmol/L (3.5-5.1); SODIUM 140 mmol/L (136-145); UREA NITROGEN 12 mg/dL (7-18); eGFR NON AFRICAN AMERICAN 85 mL/min (90-120)
--- NOTE | 2020-02-19 12:42 | NUR ---
PT OUT AMBULATING IN HALLS.
--- NOTE | 2020-02-19 12:46 | MORECARE ---
CASE MANAGEMENT DISCHARGE SUMMARY PATIENT: MOIZ MALONE UNIT: [id number] ADM DATE: 02/08/20 AGE: 39 : [birth year] SEX: F ROOM/BED: D.0613 AUTHOR: GEOVANNA,DOC PHYSICIAN: REFERRING PHYSICIAN: MARGARITA ABEBE MD DATE OF SERVICE: 02/19/20 Discharge Plan Patient Name: MOIZ MALONE Facility: [facility]:[place] : 1980 Planned Disposition: Home with Home Health Anticipated Discharge Date: Discharge Date: Expected LOS: Initial Reviewer: [email or web address] Initial Review Date: 02/08/2020 Generated: 02/19/20 1:45 pm Comments DCP- Discharge Planning Updated by [email or web address]: Regi Myrick on 02/19/20 11:[address] Patient Name: MOIZ MALONE Encounter No: [id number] : 1980 Primary Insurance: [employer] PRIVATE OPTIONS TRE Anticipated DC Date: Planned Disposition: Home with Home Health External Planned Provider: : DCP follow-up note: LATE ENTRY 02/18/20 CM CALLED [facility], [facility], [facility], AND [facility] FOR POSSIBLE HH PROVIDERS. ALL PROVIDERS STATED THEY WERE UNABLE TO ACCOMIDATE HER NEEDS. CALLED [facility] HYDRAULIC PLUMBER HELPER WHO ALSO CALLED AROUND TO FIND AVALABLE HH PROVIDERS. ALL PROVIDERS ARE NOT IN NETWORK IN [place], OR DO NOT HAVE THE STAFF AVAILABLE. Case management will follow and assist as needed. Regi Myrick MSN,RN,CM DCP- Discharge Planning Updated by [email or web address]: Regi Myrick on 02/18/20 7:[address] Patient Name: MOIZ MALONE Encounter No: [id number] : 1980 Primary Insurance: [employer] [place] PRIVATE OPTIONS TRE Anticipated DC Date: Planned Disposition: Home with Home Health External Planned Provider: : DCP follow-up note: CM received call from [facility] stating they do not accept pts insurance. CM attempted to call pt in room several times to update. CM scott continue finding alternate companies for HH. CM called Moiz at [facility] [phone] and faxed referral to [phone]. Case management will follow and assist as needed. Regi LEONE,RN,CM DCP- Discharge Planning Updated by [email or web address]: Regi Myrick on 02/18/20 7:[address] Patient Name: MOIZ MALONE Admission Status: ER Accout number: [id number] Admission Date: 02-08-2020 : 1980 Admission Diagnosis:FEVER, UNSPECIFIED Attending: MARGARITA ABEBE Current LOS: 4 Anticipated DC Date: Planned Disposition: Home with Home Health Primary Insurance: [place] PRIVATE OPTIONS TRE Late Entry: Assessment completed at 1517 02/11/20 Discharge Planning Comments: CM met with patient to complete initial dc planning assessment. CM educated patient on the CM role and verbal consent given by patient to complete assessment. CM verified patient's address, phone number, and emergency contact phone numbers. Patient lives at with home with her (Darcy) [phone], but is . At discharge patient plans to move in with her mother in [place]. That address is [address] [place] [address]. CM discussed the anticipated need for HH and infusion services. NELY signed to initiate [facility], and [facility]. CM will fax referral. Transportation provider at discharge will be her mother, with her as a backup . CM will continue to follow and will assist as needed with dc plans/needs. Furnace Converter: Regi LEONE,RN,CM DCPIA - Discharge Planning Initial Assessment Updated by [email or web address]: Regi Myrick on 02/12/20 7:52 am * Is the patient Alert and Oriented? Yes * How many steps to enter\exit or inside your home? 0/0 * PCP Dr Pate * Pharmacy [facility] * Preadmission Environment Home Alone * ADLs Independent * Equipment None * List name and contact numbers for known caregivers / representatives who currently or will assist patient after discharge: Marissa (mother) [phone] Sj ( as a backup) they are [phone] * Verbal permission to speak to the caregivers and representatives has been obtained from the patient. Yes * Community resources currently utilized None * Additional services required to return to the preadmission environment? Yes * Can the patient safely return to the preadmission environment? Yes * Has this patient been hospitalized within the prior 30 days at any hospital? No Coverage Notice Reviewer: [id number] Josefina Myrick Notice Issued Date-Time: 02/11/2020 15:17 Notice Type: Patient Choice Letter Notice Delivered To: Patient Relationship to Patient: Senior Unix Administrator Name: Delivery Method: PHONE - Phone Marcia Days: Prior Verbal Notification: Recipient Understood Notice: Yes Recipient Signature: Yes Med Rec Note Co-signed by Attending: Coverage Notice Comment: Last DP export: 02/19/20 8:11 a Patient Name: MOIZ MALONE Page [id number] at 1246 All edits/amendments must be made on the electronic document DICTATION DATE: 02/19/20 1245 SAFETY AND SECURITY OFFICER: LAKISHA 02/19/20 1245 RPT#: [id number] DC DATE: STATUS: ADM IN [facility] [address] [place] [address] END OF REPORT
--- NOTE | 2020-02-19 12:57 | NUR ---
Nutrition Follow-up: Eating well. Pt hoping to be d/c'd today. Diet: Diabetic Wt: 311# (02/18); 278.8# (02/08) Last BM: 02/18 Labs noted: Glu 188 eds noted: Lasix, Zofran, Lantus, Protonix, Pepcid, Humalog, electrolyte protocol -Monitor wt; noted daily wts ordered. -RD following.
[2020-02-19] MEDS ORDERED: PHENERGAN25 M1 PO (13:04)
[2020-02-19] MEDS ORDERED: GENTAMICIN80 MG/2 ML IM (13:14)
--- NOTE | 2020-02-19 13:20 | MORECARE ---
CASE MANAGEMENT DISCHARGE SUMMARY PATIENT: MOIZ MALONE UNIT: [id number] ADM DATE: 02/08/20 AGE: 39 : [birth year] SEX: F ROOM/BED: D.5162 AUTHOR: GEOVANNA,DOC PHYSICIAN: REFERRING PHYSICIAN: MARGARITA ABEBE MD DATE OF SERVICE: 02/19/20 Discharge Plan Patient Name: MOIZ MALONE Facility: [facility]:[place] : 1980 Planned Disposition: Home Anticipated Discharge Date: Discharge Date: Expected LOS: 0 Initial Reviewer: [email or web address] Initial Review Date: 02/08/2020 Generated: 02/19/20 2:19 pm Comments DCP- Discharge Planning Updated by [email or web address]: Regi Myrick on 02/19/20 12:[address] Patient Name: MOIZ MALONE Encounter No: [id number] : 1980 Primary Insurance: [employer] OPTIONS TRE Anticipated DC Date: Planned Disposition: Home with Home Health External Planned Provider: : DCP follow-up note: CM spoke with medical providers during IDT for unavailability of HH in [place]. The patient can have gentamycin IM daily. The patient states she has a family friend (Kori Kumar [phone]) that is a nurse who can administer the injections. CM called Lina to verify agreement. Called jonathan for update. CM called around for medication availability. YASMANI spoke with Asha Pharm D at [facility] in [place] at [phone] who states they have the medication in stock. Patient states she would like to have home health follow her. CM explained she could not have HH in that area. Patient states her father will pick her up. Patient and family in agreement with discharge plan. No changes to plan. Case management will follow and assist as needed. Regi Myrick MSN,RN,CM DCP- Discharge Planning Updated by [email or web address]: Regi Myrick on 02/19/20 11:[address] Patient Name: MOIZ MALONE Encounter No: [id number] : 1980 Primary Insurance: [place] PRIVATE OPTIONS TRE Anticipated DC Date: Planned Disposition: Home with Home Health External Planned Provider: : DCP follow-up note: LATE ENTRY 02/18/20 CM CALLED [facility], [facility], [facility], AND [facility] FOR POSSIBLE HH PROVIDERS. ALL PROVIDERS STATED THEY WERE UNABLE TO ACCOMIDATE HER NEEDS. CALLED [facility] BRIMMING MACHINE OPERATOR WHO ALSO CALLED AROUND TO FIND AVALABLE HH PROVIDERS. ALL PROVIDERS ARE NOT IN NETWORK IN [place], OR DO NOT HAVE THE STAFF AVAILABLE. Case management will follow and assist as needed. Regi LEONE,RN,CM DCP- Discharge Planning Updated by [email or web address]: Regi Myrick on 02/18/20 7:[address] Patient Name: MOIZ MALONE Encounter No: [id number] : 1980 Primary Insurance: [place] PRIVATE OPTIONS TRE Anticipated DC Date: Planned Disposition: Home with Home Health External Planned Provider: : DCP follow-up note: CM received call from [facility] stating they do not accept pts insurance. CM attempted to call pt in room several times to update. CM scott continue finding alternate companies for HH. CM called Moiz at [facility] [phone] and faxed referral to [phone]. Case management will follow and assist as needed. Regi LEONE,RN,CM DCP- Discharge Planning Updated by [email or web address]: Regi Myrick on 02/18/20 7:[address] Patient Name: MOIZ MALONE Admission Status: ER Accout number: [id number] Admission Date: 02-08-2020 : 1980 Admission Diagnosis:FEVER, UNSPECIFIED Attending: MARGARITA ABEBE Current LOS: 4 Anticipated DC Date: Planned Disposition: Home with Home Health Primary Insurance: [place] PRIVATE OPTIONS TRE Late Entry: Assessment completed at 1517 02/11/20 Discharge Planning Comments: CM met with patient to complete initial dc planning assessment. CM educated patient on the CM role and verbal consent given by patient to complete assessment. CM verified patient's address, phone number, and emergency contact phone numbers. Patient lives at with home with her (Darcy) [phone], but is . At discharge patient plans to move in with her mother in [place]. That address is [address] [place] [address]. [place], [place] [address]. CM discussed the anticipated need for HH and infusion services. NELY signed to initiate [facility], and [facility] services. CM will fax referral. Transportation provider at discharge will be her mother, with her as a backup . CM will continue to follow and will assist as needed with dc plans/needs. Thermocouple Tester: Regi Myrick MSN,RN,CM DCPIA - Discharge Planning Initial Assessment Updated by [email or web address]: Regi Myrick on 02/12/20 7:52 am * Is the patient Alert and Oriented? Yes * How many steps to enter\exit or inside your home? 0/0 * PCP Dr Pate * [facility] * Preadmission Environment Home Alone * ADLs Independent * Equipment None * List name and contact numbers for known caregivers / representatives who currently or will assist patient after discharge: Marissa (mother) [phone] Sj ( as a backup) they are [phone] * Verbal permission to speak to the caregivers and representatives has been obtained from the patient. Yes * Community resources currently utilized None * Additional services required to return to the preadmission environment? Yes * Can the patient safely return to the preadmission environment? Yes * Has this patient been hospitalized within the prior 30 days at any hospital? No Coverage Notice Reviewer: [id number] - Regi Myrick Notice Issued Date-Time: 02/11/2020 15:17 Notice Type: Patient Choice Letter Notice Delivered To: Patient Relationship to Patient: Sccm Administrator Name: Delivery Method: PHONE - Phone Marcia Days: Prior Verbal Notification: Recipient Understood Notice: Yes Recipient Signature: Yes Med Rec Note Co-signed by Attending: Coverage Notice Comment: Last DP export: 02/19/20 11:46 a Patient Name: MOIZ MALONE Page [id number] at 1320 All edits/amendments must be made on the electronic document DICTATION DATE: 02/19/201318 EXTRACTIVE METALLURGIST: LAKISHA 02/19/20 1319 RPT#: [id number] DC DATE: STATUS: ADM IN [facility] [address] [place] [address] END OF REPORT
[2020-02-19 13:21] VITALS: BP 146/83
--- NOTE | 2020-02-19 15:30 | NUR ---
PT'S DISCHARGE INSTRUCTIONS REVIEWED. IV'S REMOVED. SCRIPT GIVEN TO PT FOR SUPPLIES AND ONE CALLED INTO [facility].
[2020-02-22 22:07] LABS: IMMUNOGLOBULIN E 339 IU/mL (6-495)
== END 2020-02-19 15:46 | disposition home or self-care (01) | DRG 871 ==
LOC: D.ER 15:33 → D.M2 19:19
PROVIDERS: Family Medicine; Internal Medicine Pulmonary Disease; ADMIT Internal Medicine Nephrology; ATTEND Internal Medicine Nephrology
DX: A41.9 Sepsis, unspecified organism (principal); N15.1 Renal and perinephric abscess; N39.0 Urinary tract infection, site not specified; E87.1 Hypo-osmolality and hyponatremia; D64.9 Anemia, unspecified; E83.42 Hypomagnesemia; I10 Essential (primary) hypertension; D69.6 Thrombocytopenia, unspecified; K59.00 Constipation, unspecified; R00.0 Tachycardia, unspecified; R06.82 Tachypnea, not elsewhere classified; E66.01 Morbid (severe) obesity due to excess calories; Z68.35 Body mass index [BMI] 35.0-35.9, adult; E11.9 Type 2 diabetes mellitus without complications